=== PATIENT | male | born 1950 | race Caucasian/White ===

== ENCOUNTER → 2017-03-14 | Outpatient (CLI) | payer OTHER ==
[~2017-03-14] MED LIST: ASPI81CH43 PO; ASPI81TA27 PO; Atorvastatin Calcium PO; CAR3125T PO; CLOP75TA28 PO; DIG025T PO; ENA2.5T PO; WARF5TAB PO
== END | disposition home or self-care (01) ==
LOC: XYW 10:52
PROVIDERS: ATTEND Internal Medicine Cardiovascular Disease
DX: I34.0 Nonrheumatic mitral (valve) insufficiency (principal); I48.91 Unspecified atrial fibrillation
CPT/HCPCS: 93306

== ENCOUNTER → 2017-04-28 | Outpatient (CLI) | payer OTHER ==
[2017-04-28 17:07] LABS: Urine Bacteria NONE SEEN /hpf (None Seen); Urine Blood Negative /uL (Negative); Urine Mucus FEW (None Seen); Urine Specific Gravity 1.022 (1.001-1.035); Urine WBC 7 /hpf (0 - 3)
== END | disposition home or self-care (01) ==
LOC: LAB 16:21
PROVIDERS: ATTEND Internal Medicine Cardiovascular Disease
DX: I48.2 Chronic atrial fibrillation (principal)
CPT/HCPCS: 81001

== ENCOUNTER → 2017-05-26 | Outpatient (CLI) | payer OTHER ==
[2017-05-26 09:16] LABS: Basophils # (auto) 0.1 uL; Basophils % (auto) 0.6 % (0.0-2.0); Eosinophils # (auto) 0.4 uL; Eosinophils % (auto) 3.7 % (0.0-7.0); Hematocrit 42.9 % (41.0-53.0); Hemoglobin 14.5 g/dL (13.5-17.5); Lymphocytes # (auto) 2.1 uL; Lymphocytes % (auto) 22.3 % (10.0-50.0); Mean Corpuscular Hgb Conc. 33.9 g/dL (32.0-36.0); Mean Corpuscular Volume 94.3 fL (80.0-100.0); Monocytes # (auto) 0.8 uL; Neutrophils # (auto) 6.3 uL; Neutrophils % (auto) 65.4 % (37.0-80.0); Nucleated Red Blood Cells % 0.1 %; Platelet Count (auto) 250 10^3/uL (140-450); Red Blood Cells 4.55 10^6/uL (4.5-5.90); Red Cell Distribution Width 12.7 % (11.8-14.3); White Blood Cell 9.6 10^3/uL (4.4-10.8)
[2017-05-26 09:51] LABS: Albumin 3.9 g/dL (3.4-5.0); Calcium 8.8 mg/dL (8.5-10.1)
[2017-05-26 14:24] LABS: BUN/Creatinine Ratio 18.4; Bilirubin, Total 0.7 mg/dL (0.2-1.0); Total Protein 7.3 g/dL (6.4-8.2)
== END | disposition home or self-care (01) ==
LOC: LAB 08:26
PROVIDERS: ATTEND Physician Assistant
DX: I48.2 Chronic atrial fibrillation (principal); N18.2 Chronic kidney disease, stage 2 (mild); I25.2 Old myocardial infarction; R30.0 Dysuria; Z86.79 Personal history of other diseases of the circulatory system
CPT/HCPCS: 36415; 80053; 80061; 84153; 85025

== ENCOUNTER → 2017-11-16 | Outpatient (CLI) | payer OTHER | END | disposition home or self-care (01) | LOC: XYW 07:32 | PROVIDERS: ATTEND Internal Medicine Cardiovascular Disease | DX: I70.0 Atherosclerosis of aorta (principal); I48.2 Chronic atrial fibrillation; Z79.82 Long term (current) use of aspirin | CPT/HCPCS: 93306 ==

== ENCOUNTER → 2018-03-16 | Outpatient (CLI) | payer OTHER ==
[2018-03-16 10:59] LABS: Basophils # (auto) 0.1 uL; Basophils % (auto) 0.9 % (0.0-2.0); Eosinophils # (auto) 0.3 uL; Eosinophils % (auto) 3.4 % (0.0-7.0); Hemoglobin 14.7 g/dL (13.5-17.5); Lymphocytes % (auto) 21.2 % (10.0-50.0); Mean Corpuscular Hemoglobin 33.6 pg (28.0-32.0); Mean Corpuscular Hgb Conc. 34.2 g/dL (32.0-36.0); Monocytes # (auto) 0.8 uL; Monocytes % (auto) 8.5 % (0.0-12.0); Neutrophils # (auto) 6.3 uL; Platelet Count (auto) 238 10^3/uL (140-450); Red Blood Cells 4.38 10^6/uL (4.5-5.90); Red Cell Distribution Width 13.1 % (11.8-14.3); White Blood Cell 9.6 10^3/uL (4.4-10.8)
[2018-03-16 11:37] LABS: Albumin 3.8 g/dL (3.4-5.0); BUN/Creatinine Ratio 12.5; Calcium 8.7 mg/dL (8.5-10.1); Potassium 4.8 mmol/L (3.5-5.1)
[2018-03-16 11:42] LABS: Bilirubin, Total 0.7 mg/dL (0.2-1.0); Total Protein 6.9 g/dL (6.4-8.2)
== END | disposition home or self-care (01) ==
LOC: LAB 10:37
PROVIDERS: ATTEND Physician Assistant
DX: Z12.5 Encounter for screening for malignant neoplasm of prostate (principal); I25.5 Ischemic cardiomyopathy; I48.2 Chronic atrial fibrillation; N18.2 Chronic kidney disease, stage 2 (mild); Z79.01 Long term (current) use of anticoagulants
CPT/HCPCS: 36415; 80053; 80061; 82270; 84153; 85025

== ENCOUNTER → 2019-02-01 | Outpatient (CLI) | payer OTHER ==
[~2019-02-01] VITALS: Ht 188 cm; Wt 107.5 kg
[~2019-02-01] MED LIST changes: +ADENOSINE 90 MG in GIVE UN-DILUTED 0 ML IV STA; +ASPI-404 PO; -ASPI81TA27 PO; -ENA2.5T PO; +ENAL2.5T2 PO
== END | disposition home or self-care (01) ==
LOC: XY 07:39
PROVIDERS: ATTEND Internal Medicine
DX: I25.10 Atherosclerotic heart disease of native coronary artery without angina pectoris (principal)
CPT/HCPCS: 78452; 93017; A9500; J0153

== ENCOUNTER → 2019-02-06 | Outpatient (CLI) | payer OTHER ==
[~2019-02-06] MED LIST changes: -ADENOSINE 90 MG in GIVE UN-DILUTED 0 ML IV STA
== END | disposition home or self-care (01) ==
LOC: XYW 09:27
PROVIDERS: ATTEND Internal Medicine
DX: I08.1 Rheumatic disorders of both mitral and tricuspid valves (principal); I48.91 Unspecified atrial fibrillation
CPT/HCPCS: 93306

== ENCOUNTER → 2019-02-08 | Outpatient (CLI) | payer OTHER ==
[2019-02-08 12:17] LABS: Cholesterol 126 mg/dL (< 200); HDL Cholesterol 53 mg/dL (40-59); LDL Cholesterol 65 mg/dL (< 100); Triglycerides 89 mg/dL (< 150)
== END | disposition home or self-care (01) ==
LOC: LAB 11:40
PROVIDERS: ATTEND Internal Medicine
DX: I42.0 Dilated cardiomyopathy (principal); N18.2 Chronic kidney disease, stage 2 (mild)
CPT/HCPCS: 36415; 80061

== ENCOUNTER → 2019-09-17 | Outpatient (CLI) | payer OTHER ==
[~2019-09-17] MED LIST changes: +APIX5TAB PO; -ASPI-404 PO; +ASPI-543 PO; +CARV6.2551 PO; +ENAL2.5T11 PO; -ENAL2.5T2 PO; +LISI-648 PO; +SPIR25TA8 PO
[2019-09-17 11:13] LABS: Basophils # (auto) 0.1 10 ^3/uL (0-0.2); Basophils % (auto) 0.7 % (0.0-2.0); Eosinophils # (auto) 0.2 10 ^3/uL (0-0.8); Eosinophils % (auto) 2.5 % (0.0-7.0); Hematocrit 46.8 % (41.0-53.0); Hemoglobin 15.8 g/dL (13.5-17.5); Lymphocytes # (auto) 1.8 10 ^3/uL (0.4-5.4); Lymphocytes % (auto) 18.9 % (10.0-50.0); Mean Corpuscular Hemoglobin 33.1 pg (28.0-32.0); Mean Corpuscular Hgb Conc. 33.7 g/dL (32.0-36.0); Mean Corpuscular Volume 98.2 fL (80.0-100.0); Monocytes # (auto) 0.9 10 ^3/uL (0-1.3); Neutrophils # (auto) 6.7 10 ^3/uL (1.6-8.6); Neutrophils % (auto) 68.9 % (37.0-80.0); Nucleated Red Blood Cells % 0.2 %; Platelet Count (auto) 221 10^3/uL (140-450); Red Blood Cells 4.77 10^6/uL (4.5-5.90); Red Cell Distribution Width 12.7 % (11.8-14.3); White Blood Cell 9.7 10^3/uL (4.4-10.8)
[2019-09-17 12:26] LABS: Potassium 4.5 mmol/L (3.5-5.1)
[2019-09-17 12:38] LABS: Albumin 3.8 g/dL (3.4-5.0); BUN/Creatinine Ratio 14.1; Bilirubin, Total 0.7 mg/dL (0.2-1.0); Calcium 8.5 mg/dL (8.5-10.1); Total Protein 6.9 g/dL (6.4-8.2)
== END | disposition home or self-care (01) ==
LOC: LAB 11:01
PROVIDERS: ATTEND Physician Assistant
DX: Z00.00 Encounter for general adult medical examination without abnormal findings (principal); I12.9 Hypertensive chronic kidney disease with stage 1 through stage 4 chronic kidney disease, or unspecified chronic kidney disease; N18.2 Chronic kidney disease, stage 2 (mild); I48.20 Chronic atrial fibrillation, unspecified; R35.1 Nocturia
CPT/HCPCS: 36415; 80053; 80061; 84153; 84154; 85025

== ENCOUNTER → 2019-09-25 | Outpatient (CLI) | payer OTHER ==
[~2019-09-25] MED LIST changes: -APIX5TAB PO; +ASPI-404 PO; -ASPI-543 PO; -CARV6.2551 PO; -ENAL2.5T11 PO; +ENAL2.5T2 PO; -LISI-648 PO; -SPIR25TA8 PO
== END | disposition home or self-care (01) ==
LOC: LAB 13:01
PROVIDERS: ATTEND Physician Assistant
DX: Z00.00 Encounter for general adult medical examination without abnormal findings (principal); I12.9 Hypertensive chronic kidney disease with stage 1 through stage 4 chronic kidney disease, or unspecified chronic kidney disease; N18.2 Chronic kidney disease, stage 2 (mild); R35.1 Nocturia; I48.20 Chronic atrial fibrillation, unspecified
CPT/HCPCS: 82274

== ENCOUNTER → 2019-10-02 | Outpatient (CLI) | payer OTHER ==
[~2019-10-02] MED LIST changes: +APIX5TAB PO; -ASPI-404 PO; +ASPI-543 PO; +CARV6.2551 PO; +ENAL2.5T11 PO; -ENAL2.5T2 PO; +LISI-648 PO; +SPIR25TA8 PO
== END | disposition home or self-care (01) ==
LOC: XYW 09:42
PROVIDERS: ATTEND Internal Medicine
DX: I08.0 Rheumatic disorders of both mitral and aortic valves (principal); I48.91 Unspecified atrial fibrillation
CPT/HCPCS: 93306

== ENCOUNTER → 2020-01-02 | Outpatient (CLI) | payer OTHER ==
[~2020-01-02] MED LIST changes: -APIX5TAB PO; -CARV6.2551 PO; -LISI-648 PO; -SPIR25TA8 PO
== END | disposition home or self-care (01) ==
LOC: LAB 17:28
PROVIDERS: ATTEND Urology
DX: N39.0 Urinary tract infection, site not specified (principal)
CPT/HCPCS: 87086

== ENCOUNTER → 2020-01-24 | Day surgery (SDC) | payer OTHER ==
[2020-01-20 10:59] LABS: Basophils # (auto) 0.1 10 ^3/uL (0-0.2); Basophils % (auto) 0.8 % (0.0-2.0); Eosinophils # (auto) 0.2 10 ^3/uL (0-0.8); Eosinophils % (auto) 2.1 % (0.0-7.0); Hematocrit 48.1 % (41.0-53.0); Hemoglobin 16.2 g/dL (13.5-17.5); Lymphocytes # (auto) 1.6 10 ^3/uL (0.4-5.4); Lymphocytes % (auto) 18.1 % (10.0-50.0); Mean Corpuscular Hemoglobin 33.1 pg (28.0-32.0); Mean Corpuscular Hgb Conc. 33.7 g/dL (32.0-36.0); Mean Corpuscular Volume 98.4 fL (80.0-100.0); Monocytes # (auto) 0.9 10 ^3/uL (0-1.3); Monocytes % (auto) 9.8 % (0.0-12.0); Neutrophils # (auto) 6.3 10 ^3/uL (1.6-8.6); Neutrophils % (auto) 69.2 % (37.0-80.0); Nucleated Red Blood Cells % 0.2 %; Platelet Count (auto) 240 10^3/uL (140-450); Red Cell Distribution Width 12.9 % (11.8-14.3)
[2020-01-20 11:13] LABS: INR 1.03 (0.9-1.15); Partial Thromboplastin Time 26.8 sec (23.0-31.2)
[~2020-01-24] VITALS: Ht 188 cm; Wt 108.9 kg
[~2020-01-24] MED LIST changes: +APIX5TAB PO; -ASPI-543 PO; -ASPI81CH43 PO; -CAR3125T PO; +CARV6.2551 PO; -CLOP75TA28 PO; -DIG025T PO; -ENAL2.5T11 PO; +LISI-648 PO; +SODIUM CHLORIDE LOCK 10 ML ONE; +SPIR25TA8 PO; -WARF5TAB PO
[2020-01-24] MEDS: MIDAZOLAM HCL 5 MG/ML-1ML VIAL ONE ×4 (13:10→13:19)
[2020-01-24] MEDS: fentaNYL CITRATE 100 MCG/2 ML VL ONE ×3 (13:10→13:17)
[2020-01-24] MEDS: diphenhdrAMINE HCL 50 MG/1 ML VL ONE ×2 (13:18→13:21)
[2020-01-24 14:15] VITALS: BP 119/77
== END | disposition home or self-care (01) ==
LOC: GI 11:37
PROVIDERS: ATTEND Internal Medicine Gastroenterology
DX: R19.5 Other fecal abnormalities (principal); D12.3 Benign neoplasm of transverse colon; K63.5 Polyp of colon; K57.30 Diverticulosis of large intestine without perforation or abscess without bleeding; K64.8 Other hemorrhoids; I48.91 Unspecified atrial fibrillation; K44.9 Diaphragmatic hernia without obstruction or gangrene; Z90.49 Acquired absence of other specified parts of digestive tract; Z98.890 Other specified postprocedural states; Z20.828 Contact with and (suspected) exposure to other viral communicable diseases; Z87.440 Personal history of urinary (tract) infections; Z87.898 Personal history of other specified conditions; Z79.899 Other long term (current) drug therapy
CPT/HCPCS: 36415; 45380; 45385; 85025; 85610; 85730; 88305; J1200; J2250; J3010; J7030; U0003; 99152; 99153

== ENCOUNTER → 2020-06-09 | Outpatient (CLI) | payer OTHER ==
[~2020-06-09] MED LIST changes: -SODIUM CHLORIDE LOCK 10 ML ONE
[2020-06-09 09:58] LABS: Basophils # (auto) 0 10 ^3/uL (0-0.2); Basophils % (auto) 0.5 % (0.0-2.0); Eosinophils # (auto) 0.2 10 ^3/uL (0-0.8); Eosinophils % (auto) 2.7 % (0.0-7.0); Hematocrit 48.3 % (41.0-53.0); Hemoglobin 16.5 g/dL (13.5-17.5); Lymphocytes # (auto) 1.5 10 ^3/uL (0.4-5.4); Mean Corpuscular Hemoglobin 33.3 pg (28.0-32.0); Mean Corpuscular Hgb Conc. 34.2 g/dL (32.0-36.0); Mean Corpuscular Volume 97.3 fL (80.0-100.0); Monocytes # (auto) 0.6 10 ^3/uL (0-1.3); Monocytes % (auto) 8.9 % (0.0-12.0); Neutrophils # (auto) 4.7 10 ^3/uL (1.6-8.6); Neutrophils % (auto) 66.9 % (37.0-80.0); Nucleated Red Blood Cells % 0.1 %; Platelet Count (auto) 204 10^3/uL (140-450); Red Blood Cells 4.96 10^6/uL (4.5-5.90); Red Cell Distribution Width 13.3 % (11.8-14.3)
[2020-06-09 10:16] LABS: Albumin 3.4 g/dL (3.4-5.0); BUN/Creatinine Ratio 10.2; Calcium 8.8 mg/dL (8.5-10.1); Potassium 4.3 mmol/L (3.5-5.1)
[2020-06-09 10:22] LABS: Bilirubin, Total 0.6 mg/dL (0.2-1.0)
== END | disposition home or self-care (01) ==
LOC: LAB 09:22
PROVIDERS: ATTEND Urology
DX: I12.9 Hypertensive chronic kidney disease with stage 1 through stage 4 chronic kidney disease, or unspecified chronic kidney disease (principal); N18.2 Chronic kidney disease, stage 2 (mild); I48.20 Chronic atrial fibrillation, unspecified; R97.20 Elevated prostate specific antigen [PSA]; R35.1 Nocturia; Z79.01 Long term (current) use of anticoagulants
CPT/HCPCS: 36415; 80053; 80061; 84153; 84154; 85025

== ENCOUNTER → 2021-06-22 | Outpatient (CLI) | payer OTHER ==
[~2021-06-22] MED LIST changes: -LISI-648 PO; +LISI-716 PO
[2021-06-22 10:22] LABS: Eosinophils # (auto) 0.2 10 ^3/uL (0-0.8); Hemoglobin 17.7 g/dL (13.5-17.5); Monocytes # (auto) 0.6 10 ^3/uL (0-1.3); Nucleated Red Blood Cells % 0.3 %; White Blood Cell 6.5 10^3/uL (4.4-10.8)
[2021-06-22 10:26] LABS: Basophils # (auto) 0 10 ^3/uL (0-0.2); Basophils % (auto) 0.5 % (0.0-2.0); Hematocrit 51.6 % (41.0-53.0); Lymphocytes # (auto) 1.4 10 ^3/uL (0.4-5.4); Lymphocytes % (auto) 21.2 % (10.0-50.0); Mean Corpuscular Hemoglobin 32.9 pg (28.0-32.0); Mean Corpuscular Hgb Conc. 34.4 g/dL (32.0-36.0); Mean Corpuscular Volume 95.7 fL (80.0-100.0); Monocytes % (auto) 8.8 % (0.0-12.0); Neutrophils # (auto) 4.3 10 ^3/uL (1.6-8.6); Neutrophils % (auto) 66.5 % (37.0-80.0); Red Cell Distribution Width 13.4 % (11.8-14.3)
[2021-06-22 11:20] LABS: Potassium 4.9 mmol/L (3.5-5.1)
[2021-06-22 11:30] LABS: Albumin 3.8 g/dL (3.4-5.0); BUN/Creatinine Ratio 12.8; Bilirubin, Total 0.9 mg/dL (0.2-1.0); Calcium 9.2 mg/dL (8.5-10.1)
== END | disposition home or self-care (01) ==
LOC: LAB 09:55
PROVIDERS: ATTEND Nurse Practitioner Family
DX: I12.9 Hypertensive chronic kidney disease with stage 1 through stage 4 chronic kidney disease, or unspecified chronic kidney disease (principal); N18.31 Chronic kidney disease, stage 3a; I25.5 Ischemic cardiomyopathy; I48.20 Chronic atrial fibrillation, unspecified; R97.20 Elevated prostate specific antigen [PSA]
CPT/HCPCS: 36415; 80053; 80061; 84153; 84154; 85025

== ENCOUNTER → 2021-07-13 | Outpatient (CLI) | payer OTHER | END | disposition home or self-care (01) | LOC: XYW 14:48 | PROVIDERS: ATTEND Internal Medicine | DX: I08.3 Combined rheumatic disorders of mitral, aortic and tricuspid valves (principal); I48.20 Chronic atrial fibrillation, unspecified; I10 Essential (primary) hypertension | CPT/HCPCS: 93306 ==

== ENCOUNTER → 2022-07-01 | Outpatient (CLI) | payer OTHER ==
[2022-07-01 10:43] LABS: Basophils # (auto) 0.1 10 ^3/uL (0-0.2); Eosinophils # (auto) 0.2 10 ^3/uL (0-0.8); Eosinophils % (auto) 2.3 % (0.0-7.0); Hematocrit 49.4 % (41.0-53.0); Hemoglobin 17.2 g/dL (13.5-17.5); Lymphocytes # (auto) 1.6 10 ^3/uL (0.4-5.4); Lymphocytes % (auto) 22.5 % (10.0-50.0); Mean Corpuscular Hemoglobin 32.9 pg (28.0-32.0); Mean Corpuscular Hgb Conc. 34.8 g/dL (32.0-36.0); Mean Corpuscular Volume 94.7 fL (80.0-100.0); Monocytes # (auto) 0.6 10 ^3/uL (0-1.3); Monocytes % (auto) 8.2 % (0.0-12.0); Neutrophils # (auto) 4.8 10 ^3/uL (1.6-8.6); Nucleated Red Blood Cells % 0.8 %; Red Blood Cells 5.22 10^6/uL (4.5-5.90); Red Cell Distribution Width 13.6 % (11.8-14.3); White Blood Cell 7.3 10^3/uL (4.4-10.8)
[2022-07-01 12:09] LABS: Albumin 3.6 g/dL (3.4-5.0); BUN/Creatinine Ratio 13.9 (10.0-20.0); Calcium 8.7 mg/dL (8.5-10.1); Potassium 4.6 mmol/L (3.5-5.1)
[2022-07-01 12:14] LABS: Bilirubin, Total 0.8 mg/dL (0.2-1.0); Total Protein 6.9 g/dL (6.4-8.2)
== END | disposition home or self-care (01) ==
LOC: LAB 10:27
PROVIDERS: ATTEND Nurse Practitioner Family
DX: Z00.00 Encounter for general adult medical examination without abnormal findings (principal); I25.5 Ischemic cardiomyopathy; I10 Essential (primary) hypertension; R97.20 Elevated prostate specific antigen [PSA]
CPT/HCPCS: 36415; 80053; 80061; 84153; 84154; 85025

== ENCOUNTER → 2022-07-29 | Outpatient (CLI) | payer OTHER | END | disposition home or self-care (01) | LOC: LAB 13:55 | PROVIDERS: ATTEND Family Medicine | DX: L90.5 Scar conditions and fibrosis of skin (principal); D22.9 Melanocytic nevi, unspecified | CPT/HCPCS: 88302 ==

== ENCOUNTER 2023-04-04 07:37 | Emergency (ER) | payer OTHER ==
[~2023-04-04] VITALS: Ht 188 cm; Wt 97.9 kg
[~2023-04-04 07:37] MED LIST changes: -LISI-716 PO; +LISI10TA34 PO
[2023-04-04 08:19] LABS: Basophils # (auto) 0 10 ^3/uL (0-0.2); Basophils % (auto) 0.4 % (0.0-2.0); Eosinophils # (auto) 0.1 10 ^3/uL (0-0.8); Eosinophils % (auto) 1.3 % (0.0-7.0); Hematocrit 46.9 % (41.0-53.0); Hemoglobin 16.2 g/dL (13.5-17.5); Lymphocytes # (auto) 1.2 10 ^3/uL (0.4-5.4); Lymphocytes % (auto) 13.3 % (10.0-50.0); Mean Corpuscular Hemoglobin 33.1 pg (28.0-32.0); Mean Corpuscular Hgb Conc. 34.5 g/dL (32.0-36.0); Mean Corpuscular Volume 95.8 fL (80.0-100.0); Monocytes # (auto) 1.1 10 ^3/uL (0-1.3); Monocytes % (auto) 12.2 % (0.0-12.0); Neutrophils # (auto) 6.8 10 ^3/uL (1.6-8.6); Neutrophils % (auto) 72.8 % (37.0-80.0); Nucleated Red Blood Cells % 0.2 %; White Blood Cell 9.4 10^3/uL (4.4-10.8)
[2023-04-04 08:32] LABS: Alanine Aminotransferase 47 U/L (7-40); Albumin 3.7 g/dL (3.2-4.8); Alkaline Phosphatase 69 U/L (46-116); Anion Gap 7 (5-15); Aspartate Aminotransferase 37 U/L (13-40); BUN/Creatinine Ratio 12.4 (10.0-20.0); Bilirubin, Total 1.1 mg/dL (0.2-1.0); Blood Urea Nitrogen 17 mg/dL (9-23); Calcium 9.1 mg/dL (8.5-10.1); Carbon Dioxide 25 mmol/L (20-30); Chloride 105 mmol/L (98-107); Glucose 105 mg/dL (74-106); Potassium 3.7 mmol/L (3.5-5.1); Sodium 137 mmol/L (136-145); Total Protein 6.8 g/dL (5.7-8.2)
[2023-04-04 10:24] LABS: Urine Bacteria NONE SEEN /hpf (None Seen); Urine Blood 3+ /uL (Negative); Urine Clarity HAZY (Clear); Urine Color Brown (Yellow); Urine Hyaline Cast MANY /lpf (0 - 2); Urine Mucus FEW (None Seen); Urine Protein, UAD 2+ (Negative); Urine Specific Gravity 1.018 (1.001-1.035); Urine WBC 73 /hpf (0 - 3)
[2023-04-04 13:14] VITALS: BP 118/88; PULSE 71; RESP 18; TEMP 98.1; O2SAT 96
[2023-04-04] MEDS ORDERED: BACDST PO ×2 (13:21)
[2023-04-04] MEDS ORDERED: cefTRIAXone SOD 1,000 MG VL IM ONE (13:30)
== END 2023-04-04 13:34 | disposition home or self-care (01) ==
LOC: ER 07:37
DX: N39.0 Urinary tract infection, site not specified (principal); F17.210 Nicotine dependence, cigarettes, uncomplicated
CPT/HCPCS: 36415; 80053; 81001; 85025; 96372; J0696

== ENCOUNTER 2023-04-05 18:39 | Inpatient (IN) | payer OTHER ==
[~2023-04-05] VITALS: Ht 185.4 cm; Wt 96.0 kg
[~2023-04-05 18:39] MED LIST changes: +BACDST PO
[2023-04-05 20:34] LABS: Basophils # (auto) 0 10 ^3/uL (0-0.2); Basophils % (auto) 0.3 % (0.0-2.0); Eosinophils # (auto) 0 10 ^3/uL (0-0.8); Eosinophils % (auto) 0.3 % (0.0-7.0); Hematocrit 48.1 % (41.0-53.0); Hemoglobin 16.5 g/dL (13.5-17.5); Lymphocytes # (auto) 1.2 10 ^3/uL (0.4-5.4); Lymphocytes % (auto) 9.3 % (10.0-50.0); Mean Corpuscular Hgb Conc. 34.3 g/dL (32.0-36.0); Mean Corpuscular Volume 96.4 fL (80.0-100.0); Monocytes # (auto) 1.3 10 ^3/uL (0-1.3); Monocytes % (auto) 10.3 % (0.0-12.0); Neutrophils # (auto) 10.3 10 ^3/uL (1.6-8.6); Neutrophils % (auto) 79.8 % (37.0-80.0); Nucleated Red Blood Cells % 0.2 %; Red Blood Cells 4.99 10^6/uL (4.5-5.90); White Blood Cell 12.9 10^3/uL (4.4-10.8)
[2023-04-05 20:58] LABS: Alanine Aminotransferase 61 U/L (7-40); Albumin 3.8 g/dL (3.2-4.8); Alkaline Phosphatase 76 U/L (46-116); Anion Gap 13 (5-15); Aspartate Aminotransferase 61 U/L (13-40); BUN/Creatinine Ratio 15.5 (10.0-20.0); Blood Urea Nitrogen 23 mg/dL (9-23); Calcium 8.9 mg/dL (8.7-10.4); Carbon Dioxide 19 mmol/L (20-30); Chloride 102 mmol/L (98-107); Glucose 106 mg/dL (74-106); Potassium 4.2 mmol/L (3.5-5.1); Sodium 134 mmol/L (136-145)
[2023-04-05 20:59] LABS: Bilirubin, Total 1.3 mg/dL (0.2-1.0); Total Protein 6.7 g/dL (5.7-8.2)
[2023-04-05] MEDS ORDERED: cefTRIAXone 1GM/50ML D5W 50 ML IV ONE (21:30)
[2023-04-05 22:09] VITALS: PULSE 67; RESP 20; O2SAT 96
[2023-04-05 23:04] LABS: Urine Bacteria NONE SEEN /hpf (None Seen); Urine Blood 3+ /uL (Negative); Urine Clarity HAZY (Clear); Urine Color Yellow (Yellow); Urine Hyaline Cast FEW /lpf (0 - 2); Urine Protein, UAD 1+ (Negative); Urine Specific Gravity 1.012 (1.001-1.035); Urine Urobilinogen Normal (Negative); Urine WBC 74 /hpf (0 - 3)
[2023-04-05] MEDS ORDERED: HYDROcodone-ACET 5/325MG TAB PO PRN (23:15)
[2023-04-05] MEDS ORDERED: ACETAMINOPHEN 325 MG TAB PO PRN (23:15)
[2023-04-05] MEDS ORDERED: ONDANSETRON HCL 4 MG/2 ML VIAL IV PRN (23:15)
[2023-04-06 04:10] VITALS: O2SAT 98
[2023-04-06 05:00] VITALS: BP 111/69; PULSE 66; RESP 20; TEMP 97.7; O2SAT 96
[2023-04-06 06:51] LABS: Basophils # (auto) 0 10 ^3/uL (0-0.2); Eosinophils # (auto) 0 10 ^3/uL (0-0.8); Eosinophils % (auto) 0.5 % (0.0-7.0); Lymphocytes % (auto) 13.2 % (10.0-50.0)
[2023-04-06 06:55] LABS: Basophils % (auto) 0.5 % (0.0-2.0); Hematocrit 42.4 % (41.0-53.0); Hemoglobin 14.9 g/dL (13.5-17.5); Mean Corpuscular Hemoglobin 34.9 pg (28.0-32.0); Mean Corpuscular Hgb Conc. 35.3 g/dL (32.0-36.0); Mean Corpuscular Volume 99.1 fL (80.0-100.0); Monocytes % (auto) 13.1 % (0.0-12.0); Neutrophils # (auto) 5.8 10 ^3/uL (1.6-8.6); Neutrophils % (auto) 72.7 % (37.0-80.0); Red Blood Cells 4.28 10^6/uL (4.5-5.90); Red Cell Distribution Width 12.9 % (11.8-14.3)
[2023-04-06 07:00] LABS: Alanine Aminotransferase 49 U/L (7-40); Alkaline Phosphatase 60 U/L (46-116); Anion Gap 10 (5-15); BUN/Creatinine Ratio 11.3 (10.0-20.0); Blood Urea Nitrogen 17 mg/dL (9-23); Carbon Dioxide 22 mmol/L (20-30); Chloride 104 mmol/L (98-107); Glucose 103 mg/dL (74-106); Potassium 5.1 mmol/L (3.5-5.1); Sodium 136 mmol/L (136-145)
[2023-04-06 07:01] LABS: Albumin 3.4 g/dL (3.2-4.8); Aspartate Aminotransferase 46 U/L (13-40)
[2023-04-06 07:02] LABS: Bilirubin, Total 0.8 mg/dL (0.2-1.0); Total Protein 6.2 g/dL (5.7-8.2)
[2023-04-06 09:00] VITALS: BP 107/64; PULSE 76; RESP 16; TEMP 97.7; O2SAT 100
[2023-04-06] MEDS ORDERED: cefTRIAXone 1GM/50ML D5W 50 ML IV SCH (09:00)
[2023-04-06] MEDS: CARVEDILOL 3.125 MG TAB PO SCH ×2 (09:33→22:00)
[2023-04-06] MEDS ORDERED: LISINOPRIL 10 MG TAB PO SCH (10:00)
[2023-04-06] MEDS ORDERED: TAMSULOSIN HYDROCHLORIDE 0.4 MG CAP PO ONE (12:15)
[2023-04-06 13:00] VITALS: BP 117/79; PULSE 82; RESP 15; TEMP 97.8; O2SAT 95
[2023-04-06] MEDS ORDERED: ERGOCALCIFEROL 50,000 UNIT(1.25MG) CAP PO SCH (14:00)
[2023-04-06 16:28] VITALS: BP 102/89; PULSE 61; RESP 17; TEMP 98.2; O2SAT 93
[2023-04-06] MEDS ORDERED: TAMSULOSIN HYDROCHLORIDE 0.4 MG CAP PO SCH (18:00)
[2023-04-06] MEDS: APIXABAN 5 MG TAB PO SCH (21:52)
[2023-04-06] MEDS: cefTRIAXone 1GM/50ML D5W 50 ML IV SCH ×2 (21:59→22:59)
[2023-04-06 22:00] VITALS: BP 97/58; PULSE 68; RESP 18; TEMP 98.4; O2SAT 95
[2023-04-06] MEDS ORDERED: ATORVASTATIN 20 MG TAB PO SCH (22:00)
[2023-04-07 05:00] VITALS: BP 119/78; PULSE 64; RESP 19; TEMP 97.5; O2SAT 100
[2023-04-07 06:48] LABS: Basophils # (auto) 0 10 ^3/uL (0-0.2); Basophils % (auto) 0.6 % (0.0-2.0); Hemoglobin 14.2 g/dL (13.5-17.5); Monocytes # (auto) 0.9 10 ^3/uL (0-1.3); White Blood Cell 7.1 10^3/uL (4.4-10.8)
[2023-04-07 06:50] LABS: Eosinophils # (auto) 0 10 ^3/uL (0-0.8); Eosinophils % (auto) 0.6 % (0.0-7.0); Hematocrit 40.5 % (41.0-53.0); Lymphocytes % (auto) 14.6 % (10.0-50.0); Mean Corpuscular Hemoglobin 34.4 pg (28.0-32.0); Mean Corpuscular Hgb Conc. 34.9 g/dL (32.0-36.0); Mean Corpuscular Volume 98.5 fL (80.0-100.0); Monocytes % (auto) 12.6 % (0.0-12.0); Neutrophils # (auto) 5.1 10 ^3/uL (1.6-8.6); Neutrophils % (auto) 71.6 % (37.0-80.0); Nucleated Red Blood Cells % 0.2 %; Red Blood Cells 4.12 10^6/uL (4.5-5.90); Red Cell Distribution Width 12.7 % (11.8-14.3)
[2023-04-07] MEDS ORDERED: EMPAGLIFLOZIN 10 MG TAB PO SCH (07:00)
[2023-04-07 07:17] LABS: Alanine Aminotransferase 52 U/L (7-40); Alkaline Phosphatase 60 U/L (46-116); Anion Gap 10 (5-15); Aspartate Aminotransferase 41 U/L (13-40); BUN/Creatinine Ratio 16.5 (10.0-20.0); Bilirubin, Total 0.8 mg/dL (0.2-1.0); Blood Urea Nitrogen 23 mg/dL (9-23); Calcium 8.2 mg/dL (8.5-10.1); Carbon Dioxide 20 mmol/L (20-30); Chloride 108 mmol/L (98-107); Glucose 104 mg/dL (74-106); Potassium 4.4 mmol/L (3.5-5.1); Sodium 138 mmol/L (136-145); Total Protein 5.4 g/dL (5.7-8.2)
[2023-04-07] MEDS ORDERED: ACET-1882 PO ×2 (07:28)
[2023-04-07] MEDS ORDERED: CEPH500C PO ×2 (07:28)
[2023-04-07] MEDS ORDERED: ERGO1CAP23 PO ×2 (07:28)
[2023-04-07] MEDS ORDERED: EMPA1TAB PO ×2 (07:28)
[2023-04-07 08:00] VITALS: PULSE 57; RESP 18; O2SAT 97
[2023-04-07 08:06] LABS: Free Thyroxine Index 2.6 (1.2-4.9); Thyroxine (T4) 7.2 ug/dL (4.5-12.0)
[2023-04-07 09:00] VITALS: BP 92/60; PULSE 57; RESP 18; TEMP 97.8; O2SAT 97
[2023-04-07 09:47] VITALS: BP 92/60; PULSE 57; RESP 18; TEMP 97.8; O2SAT 97
[2023-04-07] MEDS: CARVEDILOL 3.125 MG TAB PO SCH (10:00)
[2023-04-07] MEDS: APIXABAN 5 MG TAB PO SCH (10:29)
== END 2023-04-07 11:45 | disposition home health service (06) | DRG 690 ==
LOC: EDBD 18:39 → ER 18:39 → EDUNIT# 18:39 → OVERFLOW 23:12 → CENTRAL 04-06 02:33
PROVIDERS: ADMIT Internal Medicine; ATTEND Internal Medicine
DX: N13.6 Pyonephrosis (principal); I50.22 Chronic systolic (congestive) heart failure; I48.19 Other persistent atrial fibrillation; D68.59 Other primary thrombophilia; R33.9 Retention of urine, unspecified; N17.0 Acute kidney failure with tubular necrosis; N18.9 Chronic kidney disease, unspecified; N20.0 Calculus of kidney; E78.5 Hyperlipidemia, unspecified; E55.9 Vitamin D deficiency, unspecified; R74.01 Elevation of levels of liver transaminase levels; F17.210 Nicotine dependence, cigarettes, uncomplicated; I13.10 Hypertensive heart and chronic kidney disease without heart failure, with stage 1 through stage 4 chronic kidney disease, or unspecified chronic kidney disease; E66.9 Obesity, unspecified; I25.10 Atherosclerotic heart disease of native coronary artery without angina pectoris; I25.5 Ischemic cardiomyopathy; Z79.01 Long term (current) use of anticoagulants; Z95.5 Presence of coronary angioplasty implant and graft; Z87.442 Personal history of urinary calculi; Z79.899 Other long term (current) drug therapy; Z68.27 Body mass index [BMI] 27.0-27.9, adult
CPT/HCPCS: 36415; 74176; 76705; 80053; 81001; 82248; 82306; 82607; 83880; 84443; 84484; 85025; 87086; 93306; 96372; 97163; G0378; J0696

== ENCOUNTER 2023-04-26 17:19 | Inpatient (IN) | payer OTHER ==
[~2023-04-26] VITALS: Ht 188 cm; Wt 95.0 kg
[~2023-04-26 17:19] MED LIST changes: +ACET-1882 PO; -BACDST PO; +CEPH500C PO; +EMPA1TAB PO; +ERGO1CAP23 PO
[2023-04-26 18:24] LABS: Basophils # (auto) 0.2 10 ^3/uL (0-0.2); Basophils % (auto) 1.2 % (0.0-2.0); Eosinophils # (auto) 0 10 ^3/uL (0-0.8); Eosinophils % (auto) 0.2 % (0.0-7.0); Hematocrit 43.3 % (41.0-53.0); Hemoglobin 14.5 g/dL (13.5-17.5); Lymphocytes # (auto) 1.2 10 ^3/uL (0.4-5.4); Lymphocytes % (auto) 7.2 % (10.0-50.0); Mean Corpuscular Hemoglobin 32.4 pg (28.0-32.0); Mean Corpuscular Hgb Conc. 33.5 g/dL (32.0-36.0); Mean Corpuscular Volume 96.7 fL (80.0-100.0); Monocytes # (auto) 1.1 10 ^3/uL (0-1.3); Monocytes % (auto) 6.6 % (0.0-12.0); Neutrophils # (auto) 13.7 10 ^3/uL (1.6-8.6); Neutrophils % (auto) 84.8 % (37.0-80.0); Red Blood Cells 4.48 10^6/uL (4.5-5.90); Red Cell Distribution Width 13.7 % (11.8-14.3); White Blood Cell 16.2 10^3/uL (4.4-10.8)
[2023-04-26 18:32] LABS: Alanine Aminotransferase 28 U/L (7-40); Albumin 4.1 g/dL (3.2-4.8); Alkaline Phosphatase 87 U/L (46-116); Anion Gap 10 (5-15); Aspartate Aminotransferase 22 U/L (13-40); BUN/Creatinine Ratio 11.7 (10.0-20.0); Bilirubin, Total 0.7 mg/dL (0.2-1.0); Blood Urea Nitrogen 21 mg/dL (9-23); Calcium 9.4 mg/dL (8.5-10.1); Carbon Dioxide 22 mmol/L (20-30); Chloride 103 mmol/L (98-107); Glucose 125 mg/dL (74-106); Potassium 4.3 mmol/L (3.5-5.1); Sodium 135 mmol/L (136-145); Total Protein 6.8 g/dL (5.7-8.2)
[2023-04-26] MEDS ORDERED: SODIUM CHLORIDE 0.9% 1,000 ML IV ONE (18:45)
[2023-04-26 19:18] LABS: Urine Bacteria NONE SEEN /hpf (None Seen); Urine Blood 3+ /uL (Negative); Urine Clarity HAZY (Clear); Urine Color Red (Yellow); Urine Protein, UAD 2+ (Negative); Urine Specific Gravity 1.015 (1.001-1.035); Urine Urobilinogen Normal (Negative); Urine WBC 80 /hpf (0 - 3)
[2023-04-26 19:58] LABS: Lactic Acid w/Reflex 2.3 mmol/L (0.4-2.0)
[2023-04-26 20:02] LABS: Basophils # (auto) 0.1 10 ^3/uL (0-0.2); Basophils % (auto) 0.6 % (0.0-2.0); Eosinophils # (auto) 0 10 ^3/uL (0-0.8); Eosinophils % (auto) 0.1 % (0.0-7.0); Hematocrit 40.6 % (41.0-53.0); Hemoglobin 13.3 g/dL (13.5-17.5); Lymphocytes # (auto) 0.9 10 ^3/uL (0.4-5.4); Lymphocytes % (auto) 5.8 % (10.0-50.0); Mean Corpuscular Hemoglobin 31.7 pg (28.0-32.0); Mean Corpuscular Hgb Conc. 32.9 g/dL (32.0-36.0); Mean Corpuscular Volume 96.5 fL (80.0-100.0); Monocytes % (auto) 6.5 % (0.0-12.0); Neutrophils # (auto) 13.8 10 ^3/uL (1.6-8.6); Red Blood Cells 4.21 10^6/uL (4.5-5.90); Red Cell Distribution Width 13.3 % (11.8-14.3); White Blood Cell 15.9 10^3/uL (4.4-10.8)
[2023-04-26] MEDS ORDERED: cefTRIAXone 1GM/50ML D5W 50 ML IV ONE (20:15)
[2023-04-26] MEDS ORDERED: HYDROcodone-ACET 5/325MG TAB PO PRN (21:15)
[2023-04-26] MEDS ORDERED: TEMAZEPAM 15 MG CAP PO PRN (21:15)
[2023-04-26] MEDS ORDERED: ONDANSETRON HCL 4 MG/2 ML VIAL IV PRN (21:15)
[2023-04-26] MEDS ORDERED: ACETAMINOPHEN 325 MG TAB PO PRN (21:15)
[2023-04-26] MEDS: ATORVASTATIN 20 MG TAB PO SCH (23:53)
[2023-04-26] MEDS: CARVEDILOL 3.125 MG TAB PO SCH (23:58)
[2023-04-27] VITALS (8 sets, daily range): BP systolic 96–134; BP diastolic 54–68; PULSE 59–97; RESP 14–20; TEMP 98–98.9; O2SAT 93–98
[2023-04-27 04:42] LABS: Basophils # (auto) 0.1 10 ^3/uL (0-0.2); Basophils % (auto) 0.6 % (0.0-2.0); Eosinophils # (auto) 0.1 10 ^3/uL (0-0.8); Hematocrit 37.5 % (41.0-53.0); Hemoglobin 12.6 g/dL (13.5-17.5); Lymphocytes # (auto) 1.5 10 ^3/uL (0.4-5.4); Mean Corpuscular Hemoglobin 32.6 pg (28.0-32.0); Mean Corpuscular Hgb Conc. 33.6 g/dL (32.0-36.0); Mean Corpuscular Volume 96.9 fL (80.0-100.0); Monocytes # (auto) 0.7 10 ^3/uL (0-1.3); Monocytes % (auto) 7.8 % (0.0-12.0); Neutrophils # (auto) 6.8 10 ^3/uL (1.6-8.6); Neutrophils % (auto) 74.6 % (37.0-80.0); Red Blood Cells 3.87 10^6/uL (4.5-5.90); Red Cell Distribution Width 13.3 % (11.8-14.3); White Blood Cell 9.1 10^3/uL (4.4-10.8)
[2023-04-27 05:28] LABS: Anion Gap 7 (5-15); Carbon Dioxide 23 mmol/L (20-30); Chloride 107 mmol/L (98-107); Sodium 137 mmol/L (136-145)
[2023-04-27 05:30] LABS: Calcium 8.5 mg/dL (8.7-10.4)
[2023-04-27 05:34] LABS: BUN/Creatinine Ratio 10.3 (10.0-20.0); Blood Urea Nitrogen 16 mg/dL (9-23); Glucose 119 mg/dL (74-106)
[2023-04-27] MEDS: FINASTERIDE 5 MG TAB PO SCH (09:36)
[2023-04-27] MEDS: CARVEDILOL 3.125 MG TAB PO SCH ×2 (09:39→22:31)
[2023-04-27] MEDS: cefTRIAXone 1GM/50ML D5W 50 ML IV SCH (09:40)
[2023-04-27] MEDS ORDERED: FLUCONAZOLE 100 MG TAB PO ONE (13:15)
[2023-04-27] MEDS: ATORVASTATIN 20 MG TAB PO SCH (22:30)
[2023-04-28] VITALS (7 sets, daily range): BP systolic 111–118; BP diastolic 60–76; PULSE 66–96; RESP 16–20; TEMP 98.2–98.7; O2SAT 93–98
[2023-04-28 05:31] LABS: Basophils # (auto) 0.1 10 ^3/uL (0-0.2); Basophils % (auto) 0.6 % (0.0-2.0); Eosinophils # (auto) 0.1 10 ^3/uL (0-0.8); Eosinophils % (auto) 1.3 % (0.0-7.0); Hematocrit 36.5 % (41.0-53.0); Lymphocytes # (auto) 1.3 10 ^3/uL (0.4-5.4); Lymphocytes % (auto) 13.6 % (10.0-50.0); Mean Corpuscular Hemoglobin 31.8 pg (28.0-32.0); Mean Corpuscular Hgb Conc. 32.9 g/dL (32.0-36.0); Mean Corpuscular Volume 96.6 fL (80.0-100.0); Monocytes # (auto) 0.7 10 ^3/uL (0-1.3); Monocytes % (auto) 7.3 % (0.0-12.0); Neutrophils # (auto) 7.2 10 ^3/uL (1.6-8.6); Neutrophils % (auto) 77.2 % (37.0-80.0); Red Blood Cells 3.78 10^6/uL (4.5-5.90); Red Cell Distribution Width 13.5 % (11.8-14.3); White Blood Cell 9.3 10^3/uL (4.4-10.8)
[2023-04-28 05:49] LABS: Alanine Aminotransferase 14 U/L (7-40); Albumin 3.2 g/dL (3.2-4.8); Alkaline Phosphatase 63 U/L (46-116); Anion Gap 6 (5-15); Aspartate Aminotransferase 21 U/L (13-40); BUN/Creatinine Ratio 9.8 (10.0-20.0); Bilirubin, Total 0.5 mg/dL (0.2-1.0); Blood Urea Nitrogen 12 mg/dL (9-23); Calcium 8.5 mg/dL (8.5-10.1); Carbon Dioxide 24 mmol/L (20-30); Chloride 108 mmol/L (98-107); Glucose 84 mg/dL (74-106); Potassium 4.3 mmol/L (3.5-5.1); Sodium 138 mmol/L (136-145); Total Protein 5.6 g/dL (5.7-8.2)
[2023-04-28] MEDS: cefTRIAXone 1GM/50ML D5W 50 ML IV SCH (08:28)
[2023-04-28] MEDS: FINASTERIDE 5 MG TAB PO SCH ×2 (08:28→10:00)
[2023-04-28] MEDS: EMPAGLIFLOZIN 10 MG TAB PO SCH (08:28)
[2023-04-28] MEDS: CARVEDILOL 3.125 MG TAB PO SCH ×2 (08:30→22:46)
[2023-04-28] MEDS: ATORVASTATIN 20 MG TAB PO SCH (22:46)
[2023-04-29 04:52] VITALS: BP 113/75; PULSE 90; RESP 16; TEMP 98.3; O2SAT 93
[2023-04-29 08:00] VITALS: PULSE 70; RESP 18; O2SAT 98
[2023-04-29] MEDS: cefTRIAXone 1GM/50ML D5W 50 ML IV SCH (08:56)
[2023-04-29] MEDS: CARVEDILOL 3.125 MG TAB PO SCH ×2 (08:58→22:38)
[2023-04-29] MEDS: EMPAGLIFLOZIN 10 MG TAB PO SCH (08:58)
[2023-04-29] MEDS: FINASTERIDE 5 MG TAB PO SCH ×2 (08:58→10:00)
[2023-04-29 09:00] VITALS: BP 98/65; PULSE 73; RESP 18; TEMP 98.2; O2SAT 96
[2023-04-29 13:00] VITALS: BP 113/80; PULSE 62; RESP 16; TEMP 98; O2SAT 96
[2023-04-29 17:00] VITALS: BP 107/71; PULSE 65; RESP 14; TEMP 97.6; O2SAT 98
[2023-04-29 20:00] VITALS: PULSE 62; RESP 18; O2SAT 96
[2023-04-29] MEDS: ATORVASTATIN 20 MG TAB PO SCH (22:37)
[2023-04-30] VITALS (7 sets, daily range): BP systolic 106–136; BP diastolic 66–82; PULSE 62–99; RESP 14–20; TEMP 97.8–98.2; O2SAT 94–98
[2023-04-30] MEDS: FLUCONAZOLE 100 MG TAB PO SCH (08:17)
[2023-04-30] MEDS: cefTRIAXone 1GM/50ML D5W 50 ML IV SCH (08:17)
[2023-04-30] MEDS: CARVEDILOL 3.125 MG TAB PO SCH ×2 (08:18→21:26)
[2023-04-30] MEDS: EMPAGLIFLOZIN 10 MG TAB PO SCH (08:18)
[2023-04-30] MEDS: FINASTERIDE 5 MG TAB PO SCH (08:19)
[2023-04-30] MEDS: ATORVASTATIN 20 MG TAB PO SCH (21:23)
[2023-05-01 05:00] VITALS: BP 99/57; PULSE 61; RESP 15; TEMP 98.5; O2SAT 99
[2023-05-01 06:34] LABS: Basophils # (auto) 0.1 10 ^3/uL (0-0.2); Basophils % (auto) 0.5 % (0.0-2.0); Eosinophils # (auto) 0.2 10 ^3/uL (0-0.8); Hematocrit 41.5 % (41.0-53.0); Lymphocytes # (auto) 1.5 10 ^3/uL (0.4-5.4); Lymphocytes % (auto) 14.3 % (10.0-50.0); Mean Corpuscular Hemoglobin 32.8 pg (28.0-32.0); Mean Corpuscular Hgb Conc. 33.8 g/dL (32.0-36.0); Mean Corpuscular Volume 96.9 fL (80.0-100.0); Monocytes # (auto) 0.6 10 ^3/uL (0-1.3); Monocytes % (auto) 6.1 % (0.0-12.0); Neutrophils # (auto) 8.1 10 ^3/uL (1.6-8.6); Neutrophils % (auto) 77.1 % (37.0-80.0); Nucleated Red Blood Cells % 0.1 %; Red Blood Cells 4.28 10^6/uL (4.5-5.90); Red Cell Distribution Width 13.5 % (11.8-14.3); White Blood Cell 10.6 10^3/uL (4.4-10.8)
[2023-05-01 06:43] LABS: Anion Gap 7 (5-15); Calcium 8.9 mg/dL (8.5-10.1); Carbon Dioxide 23 mmol/L (20-30); Chloride 109 mmol/L (98-107); Potassium 4.2 mmol/L (3.5-5.1); Sodium 139 mmol/L (136-145)
[2023-05-01 06:45] LABS: INR 1.11 (0.9-1.15); Partial Thromboplastin Time 30.5 SEC (24.5-34.5); Prothrombin Time 11.6 sec (9.3-11.8)
[2023-05-01 06:49] LABS: BUN/Creatinine Ratio 11.9 (10.0-20.0); Blood Urea Nitrogen 14 mg/dL (9-23); Glucose 88 mg/dL (74-106)
[2023-05-01 08:36] VITALS: BP 126/57; PULSE 66; RESP 20; TEMP 98.5; O2SAT 93
[2023-05-01] MEDS: cefTRIAXone 1GM/50ML D5W 50 ML IV SCH (08:51)
[2023-05-01] MEDS: FLUCONAZOLE 100 MG TAB PO SCH (08:52)
[2023-05-01] MEDS: EMPAGLIFLOZIN 10 MG TAB PO SCH (08:52)
[2023-05-01] MEDS: FINASTERIDE 5 MG TAB PO SCH (08:53)
[2023-05-01] MEDS: CARVEDILOL 3.125 MG TAB PO SCH (08:54)
[2023-05-01 12:34] VITALS: BP 116/74; PULSE 62; RESP 20; TEMP 98.5; O2SAT 94
[2023-05-01 16:18] VITALS: BP 111/75; PULSE 60; RESP 16; TEMP 97.8; O2SAT 96
[2023-05-03] MEDS ORDERED: FINA5TAB4 PO (13:59)
== END 2023-05-01 16:28 | disposition home or self-care (01) | DRG 871 ==
LOC: ER 17:19 → WEST WING 21:10 → OVERFLOW 21:10 → WEST WING 04-27 08:46
PROVIDERS: ADMIT Nurse Practitioner; ATTEND Nurse Practitioner Acute Care
DX: A41.9 Sepsis, unspecified organism (principal); N17.0 Acute kidney failure with tubular necrosis; N13.6 Pyonephrosis; I50.22 Chronic systolic (congestive) heart failure; I11.0 Hypertensive heart disease with heart failure; I25.10 Atherosclerotic heart disease of native coronary artery without angina pectoris; I48.91 Unspecified atrial fibrillation; N21.0 Calculus in bladder; F17.210 Nicotine dependence, cigarettes, uncomplicated; I25.2 Old myocardial infarction; Z95.5 Presence of coronary angioplasty implant and graft
CPT/HCPCS: 36415; 51702; 74176; 80048; 80053; 81001; 83605; 85025; 85610; 85730; 86850; 86900; 86901; 87040; 87086; 87088; G0378

== ENCOUNTER 2023-05-04 09:08 | Inpatient (IN) | payer OTHER ==
[2023-05-03 12:00] LABS: Urine Epithelial Cast None Seen /hpf (<5)
[2023-05-03 12:38] LABS: Urine Bacteria FEW /hpf (None Seen); Urine Blood 1+ /uL (Negative); Urine Budding Yeast OCCASIONAL /hpf (None Seen); Urine Clarity HAZY (Clear); Urine Color Yellow (Yellow); Urine Protein, UAD 1+ (Negative); Urine Specific Gravity 1.024 (1.001-1.035); Urine Urobilinogen Normal (Negative); Urine WBC 45 /hpf (0 - 3); Urine pH 5.5 (5.0-8.0)
[~2023-05-04] VITALS: Ht 188 cm; Wt 93.5 kg
[~2023-05-04 09:08] MED LIST changes: +FINA5TAB4 PO; -SPIR25TA8 PO
[2023-05-04] MEDS ORDERED: CIPROFLOXACIN 400MG/200ML 200 ML IV ONE (10:06)
[2023-05-04] MEDS ORDERED: fentaNYL CITRATE 100 MCG/2 ML VL ONE ×3 (10:41→12:28)
[2023-05-04] MEDS ORDERED: PROPOFOL 10 MG/ML 20 ML IV ONE (10:41)
[2023-05-04] MEDS ORDERED: PHENYLEPHRINE HCL 10 MG/ML VL ONE (11:01)
[2023-05-04] MEDS ORDERED: ePHEDrine SULFATE 50 MG/ML AMP ONE (11:08)
[2023-05-04] MEDS ORDERED: dilTIAZem 25 MG/5 ML VIAL IV ONE ×2 (11:15→14:15)
[2023-05-04] MEDS ORDERED: ESMOLOL HCL 10 ML IV ONE (11:26)
[2023-05-04] MEDS ORDERED: SUCCINYLCHOLINE CHLORIDE 20 MG/ML 10ML VIAL IV ONE (11:49)
[2023-05-04] MEDS ORDERED: ROCURONIUM 10MG/ML 10ML VIAL IV ONE (11:54)
[2023-05-04] MEDS ORDERED: ROPIVACAINE 0.5% (5MG/ML) 20ML AMPULE IJ ONE (12:36)
[2023-05-04] MEDS ORDERED: SUGAMMADEX 200mg/2ml Vial (100MG/ML) IV ONE (12:47)
[2023-05-04] MEDS ORDERED: LIDOCAINE W/ EPINEPHRINE 1% 20ML VIAL ONE (13:02)
[2023-05-04 13:22] VITALS: O2SAT 97
[2023-05-04] MEDS ORDERED: HYDROmorphone HCL 2 MG/ML VL/or syr IV PRN (13:45)
[2023-05-04] MEDS ORDERED: ONDANSETRON HCL 4 MG/2 ML VIAL IV PRN ×2 (13:45→14:15)
[2023-05-04] MEDS ORDERED: MORPHINE SULFATE INJ 2 MG/ml SYRG IV PRN ×2 (14:15)
[2023-05-04] MEDS ORDERED: MAGNESIUM SULFATE 1GM/100ML 100 ML IV ONE (14:15)
[2023-05-04] MEDS ORDERED: DOCUSATE SOD 100 MG CAP PO PRN (14:15)
[2023-05-04] MEDS ORDERED: NITROGLYCERIN 0.4 MG SL TAB SL PRN ×2 (14:15)
[2023-05-04] MEDS ORDERED: ACETAMINOPHEN 325 MG TAB PO PRN (14:15)
[2023-05-04] MEDS ORDERED: dilTIAZem 120MG ER CAP PO ONE (14:30)
[2023-05-04 14:44] LABS: Basophils # (auto) 0.1 10 ^3/uL (0-0.2); Basophils % (auto) 0.8 % (0.0-2.0); Eosinophils # (auto) 0.1 10 ^3/uL (0-0.8); Eosinophils % (auto) 0.9 % (0.0-7.0); Hemoglobin 13.8 g/dL (13.5-17.5); Lymphocytes # (auto) 1.1 10 ^3/uL (0.4-5.4); Lymphocytes % (auto) 13.9 % (10.0-50.0); Mean Corpuscular Hemoglobin 32.4 pg (28.0-32.0); Mean Corpuscular Hgb Conc. 32.9 g/dL (32.0-36.0); Mean Corpuscular Volume 98.5 fL (80.0-100.0); Monocytes # (auto) 0.6 10 ^3/uL (0-1.3); Neutrophils % (auto) 76.4 % (37.0-80.0); Nucleated Red Blood Cells % 0.1 %; Red Blood Cells 4.26 10^6/uL (4.5-5.90); Red Cell Distribution Width 13.9 % (11.8-14.3); White Blood Cell 7.8 10^3/uL (4.4-10.8)
[2023-05-04] MEDS ORDERED: DEXTROSE (50%) 50ML SYRG IV PRN (15:00)
[2023-05-04 15:06] LABS: Alanine Aminotransferase 15 U/L (7-40); Albumin 3.6 g/dL (3.2-4.8); Alkaline Phosphatase 73 U/L (46-116); Anion Gap 3 (5-15); Aspartate Aminotransferase 15 U/L (13-40); BUN/Creatinine Ratio 16.8 (10.0-20.0); Blood Urea Nitrogen 24 mg/dL (9-23); Calcium 8.5 mg/dL (8.7-10.4); Carbon Dioxide 26 mmol/L (20-30); Chloride 110 mmol/L (98-107); Glucose 108 mg/dL (74-106); Magnesium 1.6 mg/dL (1.6-2.6); Potassium 4.8 mmol/L (3.5-5.1); Sodium 139 mmol/L (136-145)
[2023-05-04 15:07] LABS: Bilirubin, Total 0.7 mg/dL (0.2-1.0); Total Protein 6.2 g/dL (5.7-8.2)
[2023-05-04 15:10] LABS: Triglycerides 67 mg/dL (< 150)
[2023-05-04 15:11] LABS: LDL Cholesterol 66 mg/dL (< 100)
[2023-05-04 15:12] LABS: Cholesterol 124 mg/dL (< 200); HDL Cholesterol 44 mg/dL (40-59)
[2023-05-04 15:18] VITALS: BP 108/65; PULSE 76; RESP 18; TEMP 97.4; O2SAT 94
[2023-05-04 17:00] VITALS: BP 102/77; PULSE 72; RESP 17; TEMP 97.2; O2SAT 95
[2023-05-04] MEDS: InsuLIN REG 1unit/0.01ml Soln (100units/ml) SC SCH ×2 (17:00→22:00)
[2023-05-04] MEDS: ACCU-CHEK COMFORT CURVE STRIP VI SCH ×2 (17:16→22:34)
[2023-05-04 20:00] VITALS: BP 99/64; PULSE 85; PULSE 88; RESP 18; TEMP 97.6; O2SAT 98
[2023-05-04 22:00] VITALS: BP 99/64; PULSE 85; RESP 18; TEMP 97.6; O2SAT 98
[2023-05-04] MEDS: APIXABAN 5 MG TAB PO SCH (22:00)
[2023-05-04] MEDS: ATORVASTATIN 20 MG TAB PO SCH (22:16)
[2023-05-04] MEDS: HYDROcodone-ACET 5/325MG TAB PO PRN (22:16)
[2023-05-04] MEDS: CIPROFLOXACIN 400MG/200ML 200 ML IV SCH (22:17)
[2023-05-05] VITALS (7 sets, daily range): BP systolic 100–122; BP diastolic 54–78; PULSE 55–113; RESP 16–20; TEMP 98–98.6; O2SAT 92–100
[2023-05-05] MEDS: MORPHINE SULFATE INJ 2 MG/ml SYRG IV PRN ×2 (04:06→23:55)
[2023-05-05] MEDS: ACCU-CHEK COMFORT CURVE STRIP VI SCH (06:19)
[2023-05-05] MEDS: InsuLIN REG 1unit/0.01ml Soln (100units/ml) SC SCH (06:22)
[2023-05-05] MEDS: HYDROcodone-ACET 5/325MG TAB PO PRN ×3 (07:26→20:10)
[2023-05-05 07:38] LABS: Basophils # (auto) 0.1 10 ^3/uL (0-0.2); Basophils % (auto) 0.5 % (0.0-2.0); Eosinophils # (auto) 0 10 ^3/uL (0-0.8); Eosinophils % (auto) 0.4 % (0.0-7.0); Hematocrit 39.3 % (41.0-53.0); Hemoglobin 13.1 g/dL (13.5-17.5); Lymphocytes # (auto) 0.9 10 ^3/uL (0.4-5.4); Lymphocytes % (auto) 8.7 % (10.0-50.0); Mean Corpuscular Hemoglobin 32.4 pg (28.0-32.0); Mean Corpuscular Hgb Conc. 33.2 g/dL (32.0-36.0); Mean Corpuscular Volume 97.4 fL (80.0-100.0); Monocytes % (auto) 9.3 % (0.0-12.0); Neutrophils # (auto) 8.6 10 ^3/uL (1.6-8.6); Neutrophils % (auto) 81.1 % (37.0-80.0); Red Blood Cells 4.04 10^6/uL (4.5-5.90); Red Cell Distribution Width 13.8 % (11.8-14.3); White Blood Cell 10.6 10^3/uL (4.4-10.8)
[2023-05-05 07:46] LABS: Alanine Aminotransferase 17 U/L (7-40); Albumin 3.4 g/dL (3.2-4.8); Alkaline Phosphatase 67 U/L (46-116); Anion Gap 7 (5-15); Aspartate Aminotransferase 20 U/L (13-40); BUN/Creatinine Ratio 12.6 (10.0-20.0); Blood Urea Nitrogen 15 mg/dL (9-23); Calcium 8.4 mg/dL (8.5-10.1); Carbon Dioxide 24 mmol/L (20-30); Chloride 107 mmol/L (98-107); Glucose 92 mg/dL (74-106); Potassium 4.5 mmol/L (3.5-5.1); Sodium 138 mmol/L (136-145)
[2023-05-05 07:47] LABS: Total Protein 5.8 g/dL (5.7-8.2)
[2023-05-05] MEDS: APIXABAN 5 MG TAB PO SCH (08:57)
[2023-05-05] MEDS: CIPROFLOXACIN 400MG/200ML 200 ML IV SCH ×2 (08:57→21:18)
[2023-05-05] MEDS ORDERED: EMPAGLIFLOZIN 10 MG TAB PO SCH (10:00)
[2023-05-05 10:40] LABS: INR 1.1 (0.9-1.15); Partial Thromboplastin Time 28.1 SEC (24.5-34.5); Prothrombin Time 11.5 sec (9.3-11.8)
[2023-05-05] MEDS ORDERED: ACET-1882 PO (12:18)
[2023-05-05] MEDS ORDERED: CIPR250T26 GT (12:18)
[2023-05-05] MEDS: METOPROLOL TARTRATE 1MG/1ML-5ML VIAL IV PRN (18:53)
[2023-05-05] MEDS: HEPARIN SODIUM (PORCINE) 5000 UNITS/ML 1ML VIAL SC SCH (21:27)
[2023-05-05] MEDS: ATORVASTATIN 20 MG TAB PO SCH (21:28)
[2023-05-06] MEDS: METOPROLOL TARTRATE 1MG/1ML-5ML VIAL IV PRN (00:37)
[2023-05-06] MEDS ORDERED: METOPROLOL TARTRATE 1MG/1ML-5ML VIAL IV ONE (03:30)
[2023-05-06] MEDS: HYDROcodone-ACET 5/325MG TAB PO PRN ×2 (03:36→17:03)
[2023-05-06 05:00] VITALS: BP 109/82; PULSE 85; RESP 18; TEMP 98.4; O2SAT 96
[2023-05-06 05:51] LABS: Basophils # (auto) 0.1 10 ^3/uL (0-0.2); Basophils % (auto) 0.9 % (0.0-2.0); Eosinophils # (auto) 0.1 10 ^3/uL (0-0.8); Eosinophils % (auto) 0.5 % (0.0-7.0); Hemoglobin 13.2 g/dL (13.5-17.5); Lymphocytes % (auto) 9.5 % (10.0-50.0); Mean Corpuscular Hemoglobin 32.2 pg (28.0-32.0); Mean Corpuscular Volume 97.5 fL (80.0-100.0); Monocytes # (auto) 1.1 10 ^3/uL (0-1.3); Monocytes % (auto) 9.8 % (0.0-12.0); Neutrophils # (auto) 8.7 10 ^3/uL (1.6-8.6); Neutrophils % (auto) 79.3 % (37.0-80.0); Nucleated Red Blood Cells % 0.1 %; Red Cell Distribution Width 13.5 % (11.8-14.3)
[2023-05-06 06:09] LABS: Alanine Aminotransferase 10 U/L (7-40); Albumin 3.5 g/dL (3.2-4.8); Alkaline Phosphatase 64 U/L (46-116); Anion Gap 4 (5-15); Aspartate Aminotransferase 14 U/L (13-40); BUN/Creatinine Ratio 11.5 (10.0-20.0); Bilirubin, Total 0.9 mg/dL (0.2-1.0); Blood Urea Nitrogen 14 mg/dL (9-23); Calcium 8.4 mg/dL (8.7-10.4); Carbon Dioxide 25 mmol/L (20-30); Chloride 107 mmol/L (98-107); Glucose 94 mg/dL (74-106); Potassium 4.7 mmol/L (3.5-5.1); Sodium 136 mmol/L (136-145)
[2023-05-06 08:00] VITALS: PULSE 128
[2023-05-06 09:07] VITALS: BP 111/89; PULSE 55; RESP 19; TEMP 97.8; O2SAT 96
[2023-05-06] MEDS: CIPROFLOXACIN 400MG/200ML 200 ML IV SCH (10:09)
[2023-05-06] MEDS: HEPARIN SODIUM (PORCINE) 5000 UNITS/ML 1ML VIAL SC SCH (10:15)
[2023-05-06 13:00] VITALS: BP 126/74; PULSE 50; RESP 19; TEMP 98.3; O2SAT 97
[2023-05-06 17:04] VITALS: BP 112/79; PULSE 52; RESP 17; TEMP 98.1; O2SAT 97
== END 2023-05-06 18:49 | disposition home or self-care (01) | DRG 660 ==
LOC: SUR 09:08 → TELE 14:21 → WEST WING 16:11 → TELE-WESTW 05-05 10:46
PROVIDERS: ADMIT Internal Medicine; ATTEND Internal Medicine
PROC: 0TC13ZZ Extirpation of Matter from Left Kidney, Percutaneous Approach (ICD-10-PCS; principal; 2023-05-04 10:50)
DX: N20.0 Calculus of kidney (principal); I48.19 Other persistent atrial fibrillation; N39.0 Urinary tract infection, site not specified; R57.9 Shock, unspecified; N21.0 Calculus in bladder; I25.5 Ischemic cardiomyopathy; E11.9 Type 2 diabetes mellitus without complications; E66.9 Obesity, unspecified; Z68.26 Body mass index [BMI] 26.0-26.9, adult; E78.5 Hyperlipidemia, unspecified; I11.0 Hypertensive heart disease with heart failure; I50.9 Heart failure, unspecified; I25.10 Atherosclerotic heart disease of native coronary artery without angina pectoris; Z53.31 Laparoscopic surgical procedure converted to open procedure; Z79.01 Long term (current) use of anticoagulants; Z87.442 Personal history of urinary calculi; Z95.810 Presence of automatic (implantable) cardiac defibrillator; Z98.61 Coronary angioplasty status
CPT/HCPCS: 36415; 80053; 80061; 81001; 82306; 82360; 82607; 82962; 83036; 83735; 84443; 85025; 85610; 85730; 87086; G0378; J0330; J2704

== ENCOUNTER → 2023-05-25 | Outpatient (CLI) | payer OTHER ==
[~2023-05-25] MED LIST changes: -CEPH500C PO; +CIPR250T26 GT; -EMPA1TAB PO
[2023-05-25 08:34] LABS: Basophils # (auto) 0.1 10 ^3/uL (0-0.2); Eosinophils # (auto) 0.2 10 ^3/uL (0-0.8); Eosinophils % (auto) 2.3 % (0.0-7.0); Hematocrit 39.6 % (41.0-53.0); Hemoglobin 12.9 g/dL (13.5-17.5); Lymphocytes % (auto) 14.1 % (10.0-50.0); Mean Corpuscular Hemoglobin 31.7 pg (28.0-32.0); Mean Corpuscular Hgb Conc. 32.5 g/dL (32.0-36.0); Mean Corpuscular Volume 97.7 fL (80.0-100.0); Monocytes # (auto) 0.9 10 ^3/uL (0-1.3); Monocytes % (auto) 11.9 % (0.0-12.0); Neutrophils # (auto) 5.2 10 ^3/uL (1.6-8.6); Neutrophils % (auto) 70.7 % (37.0-80.0); Red Blood Cells 4.05 10^6/uL (4.5-5.90); White Blood Cell 7.3 10^3/uL (4.4-10.8)
[2023-05-25 09:13] LABS: Prostate Specific Antigen 2.42 ng/mL (0.0-4.0)
[2023-05-25 09:16] LABS: Alanine Aminotransferase 20 U/L (7-40); Alkaline Phosphatase 72 U/L (46-116); Anion Gap 8 (5-15); Aspartate Aminotransferase 20 U/L (13-40); BUN/Creatinine Ratio 11.2 (10.0-20.0); Bilirubin, Total 0.9 mg/dL (0.2-1.0); Blood Urea Nitrogen 20 mg/dL (9-23); Calcium 9.4 mg/dL (8.5-10.1); Carbon Dioxide 24 mmol/L (20-30); Chloride 110 mmol/L (98-107); Cholesterol 124 mg/dL (< 200); Glucose 98 mg/dL (74-106); HDL Cholesterol 53 mg/dL (40-59); LDL Cholesterol 58 mg/dL (< 100); Potassium 4.2 mmol/L (3.5-5.1); Sodium 142 mmol/L (136-145); Total Protein 6.2 g/dL (5.7-8.2); Triglycerides 74 mg/dL (< 150)
[2023-05-25 09:17] LABS: Free T4 (Free Thyroxine) 1.16 ng/dL (0.89-1.76)
[2023-05-25 09:35] LABS: Urine Bacteria FEW /hpf (None Seen); Urine Blood 1+ /uL (Negative); Urine Clarity Clear (Clear); Urine Color Colorless (Yellow); Urine Protein, UAD Negative (Negative); Urine Specific Gravity 1.009 (1.001-1.035); Urine Urobilinogen Normal (Negative); Urine WBC 15 /hpf (0 - 3)
== END | disposition home or self-care (01) ==
LOC: LAB 08:22
DX: I13.0 Hypertensive heart and chronic kidney disease with heart failure and stage 1 through stage 4 chronic kidney disease, or unspecified chronic kidney disease (principal); I50.22 Chronic systolic (congestive) heart failure; N18.2 Chronic kidney disease, stage 2 (mild); N40.1 Benign prostatic hyperplasia with lower urinary tract symptoms; I48.19 Other persistent atrial fibrillation
CPT/HCPCS: 36415; 80053; 80061; 81001; 84153; 84439; 84443; 85025

== ENCOUNTER 2023-09-22 06:03 | Inpatient (IN) | payer OTHER ==
[~2023-09-22] VITALS: Ht 188 cm; Wt 102.0 kg
[2023-09-22] MEDS: SODIUM CHLORIDE 0.9% 500 ML IV ONE (06:36)
[2023-09-22] MEDS: NOREPINEPHRINE 8 MG/250ML KIT 0 ML IV ONE (06:39)
[2023-09-22 06:41] VITALS: RESP 20; O2SAT 97
[2023-09-22] MEDS ORDERED: NOREPINEPHRINE 8 MG/250ML KIT 250 ML IV SCH (06:45)
[2023-09-22] MEDS: AMIODARONE BOLUS KIT 100 ML IV ONE (06:50)
[2023-09-22 07:02] LABS: Alanine Aminotransferase 94 U/L (7-40); Albumin 4.1 g/dL (3.2-4.8); Alkaline Phosphatase 105 U/L (46-116); Anion Gap 10 (5-15); Aspartate Aminotransferase 101 U/L (13-40); BUN/Creatinine Ratio 12.3 (10.0-20.0); Blood Urea Nitrogen 28 mg/dL (9-23); Calcium 9.6 mg/dL (8.5-10.1); Carbon Dioxide 18 mmol/L (20-30); Chloride 107 mmol/L (98-107); Glucose 140 mg/dL (74-106); Potassium 4.9 mmol/L (3.5-5.1); Sodium 135 mmol/L (136-145)
[2023-09-22 07:03] LABS: Bilirubin, Total 1.5 mg/dL (0.2-1.0); Total Protein 7.1 g/dL (5.7-8.2)
[2023-09-22 07:07] LABS: Basophils # (auto) 0.1 10 ^3/uL (0-0.2); Basophils % (auto) 0.4 % (0.0-2.0); Eosinophils # (auto) 0 10 ^3/uL (0-0.8); Eosinophils % (auto) 0.1 % (0.0-7.0); Hematocrit 43.1 % (41.0-53.0); Hemoglobin 14.2 g/dL (13.5-17.5); Lymphocytes % (auto) 14.1 % (10.0-50.0); Mean Corpuscular Hemoglobin 31.7 pg (28.0-32.0); Mean Corpuscular Hgb Conc. 32.9 g/dL (32.0-36.0); Mean Corpuscular Volume 96.2 fL (80.0-100.0); Monocytes # (auto) 1.1 10 ^3/uL (0-1.3); Monocytes % (auto) 7.5 % (0.0-12.0); Neutrophils % (auto) 77.9 % (37.0-80.0); Nucleated Red Blood Cells % 0.2 %; Red Blood Cells 4.48 10^6/uL (4.5-5.90)
[2023-09-22 07:30] VITALS: PULSE 63; RESP 30; O2SAT 97
[2023-09-22] MEDS: AMIODARONE 450mg/250ml AE 250 ML IV SCH (07:43)
[2023-09-22] MEDS: LABETALOL HCL 5 MG/ML 4ML SYRINGE IV ONE (08:27)
[2023-09-22] MEDS: FUROSEMIDE 40 MG/4 ML VIAL IV ONE (08:32)
[2023-09-22] MEDS: MAGNESIUM SULFATE 1GM/100ML 100 ML IV ONE (09:41)
[2023-09-22] MEDS: FINASTERIDE 5 MG TAB PO SCH (10:21)
[2023-09-22] MEDS ORDERED: DOCUSATE SOD 100 MG CAP PO PRN (11:00)
[2023-09-22] MEDS ORDERED: HYDROcodone-ACET 5/325MG TAB PO PRN (11:00)
[2023-09-22] MEDS ORDERED: MORPHINE SULFATE INJ 2 MG/ml SYRG IV PRN (11:00)
[2023-09-22] MEDS ORDERED: NITROGLYCERIN 0.4 MG SL TAB SL PRN (11:00)
[2023-09-22] MEDS ORDERED: ONDANSETRON HCL 4 MG/2 ML VIAL IV PRN (11:00)
[2023-09-22] MEDS ORDERED: ACETAMINOPHEN 325 MG TAB PO PRN (11:00)
[2023-09-22 12:07] LABS: INR 1.44 (0.9-1.15); Partial Thromboplastin Time 27.2 SEC (24.5-34.5); Prothrombin Time 14.9 sec (9.3-11.8)
[2023-09-22 12:41] LABS: Urine Bacteria FEW /hpf (None Seen); Urine Blood 2+ /uL (Negative); Urine Clarity Turbid (Clear); Urine Color Yellow (Yellow); Urine Hyaline Cast MANY /lpf (0 - 2); Urine Protein, UAD 1+ (Negative); Urine Specific Gravity 1.014 (1.001-1.035); Urine Urobilinogen Normal (Negative); Urine WBC 19 /hpf (0 - 3)
[2023-09-22] MEDS: SODIUM CHLOR 0.9% PF (SALINE LOCK) 10ML VIAL/SYR IV SCH (14:01)
[2023-09-22] MEDS: METOPROLOL TARTRATE 1MG/1ML-5ML VIAL IV ONE ×3 (16:16→16:26)
[2023-09-22] MEDS: DIGOXIN (250MCG/ML) 2 ML AMPULE IV ONE (17:50)
[2023-09-22 20:37] VITALS: O2SAT 97
[2023-09-22 21:00] VITALS: BP 128/80; PULSE 95; RESP 16; TEMP 97.7; O2SAT 95
[2023-09-22 21:13] LABS: Body Fluid Polymorphonuclear 27 % (0-25); Body Fluid Red Blood Cells 378 CUMM (0-2000); Body Fluid White Blood Cells 223 CUMM (0-200)
[2023-09-22 21:46] VITALS: BP 128/80; PULSE 105; PULSE 70; RESP 18; RESP 20; TEMP 98.6; O2SAT 96
[2023-09-22] MEDS ORDERED: ATORVASTATIN CALCIUM 20 MG PO SCH (22:00)
[2023-09-22] MEDS ORDERED: APIXABAN 5 MG TAB PO SCH (22:00)
[2023-09-22] MEDS: ATORVASTATIN 20 MG TAB PO SCH (23:11)
[2023-09-22] MEDS: APIXABAN 2.5 MG TAB PO SCH (23:11)
[2023-09-23] VITALS (8 sets, daily range): BP systolic 93–132; BP diastolic 60–78; PULSE 55–97; RESP 16–26; TEMP 97.5–98; O2SAT 93–95
[2023-09-23 05:46] LABS: Basophils # (auto) 0 10 ^3/uL (0-0.2); Basophils % (auto) 0.3 % (0.0-2.0); Eosinophils # (auto) 0 10 ^3/uL (0-0.8); Hematocrit 39.5 % (41.0-53.0); Hemoglobin 13.2 g/dL (13.5-17.5); Lymphocytes # (auto) 1.6 10 ^3/uL (0.4-5.4); Lymphocytes % (auto) 13.6 % (10.0-50.0); Mean Corpuscular Hemoglobin 31.6 pg (28.0-32.0); Mean Corpuscular Hgb Conc. 33.6 g/dL (32.0-36.0); Mean Corpuscular Volume 94.1 fL (80.0-100.0); Monocytes # (auto) 0.7 10 ^3/uL (0-1.3); Monocytes % (auto) 6.4 % (0.0-12.0); Neutrophils # (auto) 9.2 10 ^3/uL (1.6-8.6); Neutrophils % (auto) 79.7 % (37.0-80.0); Nucleated Red Blood Cells % 0.1 %; Red Cell Distribution Width 14.6 % (11.8-14.3); White Blood Cell 11.5 10^3/uL (4.4-10.8)
[2023-09-23 06:09] LABS: Albumin 3.2 g/dL (3.2-4.8); Alkaline Phosphatase 130 U/L (46-116); Anion Gap 10 (5-15); BUN/Creatinine Ratio 19.4 (10.0-20.0); Bilirubin, Total 0.9 mg/dL (0.2-1.0); Calcium 8.8 mg/dL (8.7-10.4); Carbon Dioxide 18 mmol/L (20-30); Chloride 109 mmol/L (98-107); Glucose 93 mg/dL (74-106); Potassium 4.3 mmol/L (3.5-5.1); Sodium 137 mmol/L (136-145); Total Protein 5.5 g/dL (5.7-8.2)
[2023-09-23 06:20] LABS: Aspartate Aminotransferase 1519 U/L (13-40); Blood Urea Nitrogen 40 mg/dL (9-23)
[2023-09-23 06:21] LABS: Alanine Aminotransferase 1652 U/L (7-40)
[2023-09-23] MEDS: DIGOXIN 0.125 MG TAB PO SCH (09:33)
[2023-09-23] MEDS: EMPAGLIFLOZIN 10 MG TAB PO SCH (09:33)
[2023-09-23] MEDS: METOPROLOL TARTRATE 25 MG TAB PO SCH (10:00)
[2023-09-23] MEDS: FUROSEMIDE 40 MG/4 ML VIAL IV ONE (10:18)
[2023-09-23 14:11] LABS: Bilirubin, Direct 0.4 mg/dL (<0.3)
[2023-09-23 14:13] LABS: Magnesium 1.8 mg/dL (1.6-2.6); Phosphorus 4.6 mg/dL (2.4-5.1)
[2023-09-23 17:33] LABS: Protein, Urine < 6.0 mg/dL (0.0-11.9)
[2023-09-23 17:34] LABS: Creatinine, Urine 14.42 mg/dL (30.0-125.0)
[2023-09-23 17:35] LABS: Creatinine, Urine 14.42 mg/dL (30.0-125.0); Urine Protein/Creatinine Ratio 0.42
[2023-09-23] MEDS: FUROSEMIDE 20 MG/2 ML VIAL IV SCH (17:59)
[2023-09-24 01:00] VITALS: BP 103/77; PULSE 71; RESP 20; TEMP 97.8; O2SAT 96
[2023-09-24 05:00] VITALS: BP 93/67; PULSE 76; RESP 22; TEMP 97.6; O2SAT 100
[2023-09-24 07:19] LABS: Alanine Aminotransferase 993 U/L (7-40); Alkaline Phosphatase 129 U/L (46-116); Anion Gap 6 (5-15); Aspartate Aminotransferase 475 U/L (13-40); BUN/Creatinine Ratio 19.8 (10.0-20.0); Blood Urea Nitrogen 39 mg/dL (9-23); Calcium 8.9 mg/dL (8.5-10.1); Carbon Dioxide 25 mmol/L (20-30); Chloride 107 mmol/L (98-107); Glucose 86 mg/dL (74-106); Potassium 3.8 mmol/L (3.5-5.1); Sodium 138 mmol/L (136-145)
[2023-09-24 07:20] LABS: Albumin 3.4 g/dL (3.2-4.8)
[2023-09-24 07:21] LABS: Bilirubin, Total 0.9 mg/dL (0.2-1.0); Total Protein 5.9 g/dL (5.7-8.2)
[2023-09-24 08:00] VITALS: PULSE 91
[2023-09-24 09:00] VITALS: BP 103/70; PULSE 116; RESP 17; TEMP 99.8; O2SAT 97
[2023-09-24] MEDS ORDERED: CIPR500T4 PO (13:57)
[2023-09-24] MEDS ORDERED: TAMS-35 PO (13:57)
[2023-09-24] MEDS: TAMSULOSIN HYDROCHLORIDE 0.4 MG CAP PO ONE (14:33)
[2023-09-24] MEDS: cefTRIAXone 1GM/50ML D5W 50 ML IV SCH (14:34)
[2023-09-24 14:42] VITALS: BP 107/80; PULSE 85; RESP 17; TEMP 98.7; O2SAT 99
[2023-09-24 15:37] VITALS: BP 109/78
[2023-09-26 10:07] LABS: Protein, Body Fluid 1.4 g/dL (.)
== END 2023-09-24 16:25 | disposition home or self-care (01) | DRG 280 ==
LOC: ER 06:03 → TELE 10:58 → TELE-WESTW 21:25
PROVIDERS: ADMIT Nurse Practitioner Family; ATTEND Nurse Practitioner Family
PROC: 0W993ZZ Drainage of Right Pleural Cavity, Percutaneous Approach (ICD-10-PCS; principal; 2023-09-22)
DX: I21.4 Non-ST elevation (NSTEMI) myocardial infarction (principal); I50.43 Acute on chronic combined systolic (congestive) and diastolic (congestive) heart failure; J96.00 Acute respiratory failure, unspecified whether with hypoxia or hypercapnia; N17.0 Acute kidney failure with tubular necrosis; I13.0 Hypertensive heart and chronic kidney disease with heart failure and stage 1 through stage 4 chronic kidney disease, or unspecified chronic kidney disease; B17.9 Acute viral hepatitis, unspecified; E87.20 Acidosis, unspecified; J91.8 Pleural effusion in other conditions classified elsewhere; I48.19 Other persistent atrial fibrillation; N13.6 Pyonephrosis; E66.9 Obesity, unspecified; E78.5 Hyperlipidemia, unspecified; I25.10 Atherosclerotic heart disease of native coronary artery without angina pectoris; I25.5 Ischemic cardiomyopathy; N18.9 Chronic kidney disease, unspecified; K76.1 Chronic passive congestion of liver; J45.909 Unspecified asthma, uncomplicated; F17.210 Nicotine dependence, cigarettes, uncomplicated; N40.1 Benign prostatic hyperplasia with lower urinary tract symptoms; R33.8 Other retention of urine; Z95.5 Presence of coronary angioplasty implant and graft; Z90.49 Acquired absence of other specified parts of digestive tract; Z82.49 Family history of ischemic heart disease and other diseases of the circulatory system; Z68.28 Body mass index [BMI] 28.0-28.9, adult; Z79.01 Long term (current) use of anticoagulants; Z87.442 Personal history of urinary calculi
CPT/HCPCS: 36415; 71045; 74176; 76604; 76700; 76942; 80053; 80076; 81001; 82306; 82570; 83690; 83735; 83880; 83970; 83986; 84100; 84156; 84300; 84443; 84484; 85025; 85610; 85730; 87070; 87086; 87205; 89051; 93005; 93306; 99291; G0378

== ENCOUNTER → 2023-09-28 | Outpatient (CLI) | payer OTHER ==
[~2023-09-28] MED LIST changes: -ACET-1882 PO; -CIPR250T26 GT; +CIPR500T4 PO; -ERGO1CAP23 PO; +TAMS-35 PO
[2023-09-28 14:20] LABS: Basophils # (auto) 0.1 10 ^3/uL (0-0.2); Basophils % (auto) 0.8 % (0.0-2.0); Eosinophils # (auto) 0.1 10 ^3/uL (0-0.8); Eosinophils % (auto) 1.8 % (0.0-7.0); Hematocrit 42.7 % (41.0-53.0); Hemoglobin 14.3 g/dL (13.5-17.5); Lymphocytes # (auto) 1.6 10 ^3/uL (0.4-5.4); Lymphocytes % (auto) 18.6 % (10.0-50.0); Mean Corpuscular Hemoglobin 31.8 pg (28.0-32.0); Mean Corpuscular Hgb Conc. 33.4 g/dL (32.0-36.0); Mean Corpuscular Volume 95.2 fL (80.0-100.0); Monocytes # (auto) 0.6 10 ^3/uL (0-1.3); Monocytes % (auto) 7.7 % (0.0-12.0); Neutrophils % (auto) 71.1 % (37.0-80.0); Red Blood Cells 4.49 10^6/uL (4.5-5.90); Red Cell Distribution Width 15.1 % (11.8-14.3); White Blood Cell 8.4 10^3/uL (4.4-10.8)
[2023-09-28 14:45] LABS: Urine Bacteria FEW /hpf (None Seen); Urine Blood Negative /uL (Negative); Urine Clarity Clear (Clear); Urine Color Light-Yellow (Yellow); Urine Protein, UAD Negative (Negative); Urine Specific Gravity 1.011 (1.001-1.035); Urine Urobilinogen Normal (Negative); Urine WBC 78 /hpf (0 - 3)
[2023-09-28 14:48] LABS: Creatinine, Urine 67.76 mg/dL (30.0-125.0)
[2023-09-28 14:50] LABS: Alanine Aminotransferase 473 U/L (7-40); Albumin 3.6 g/dL (3.2-4.8); Alkaline Phosphatase 135 U/L (46-116); Anion Gap 5 (5-15); Aspartate Aminotransferase 75 U/L (13-40); Blood Urea Nitrogen 23 mg/dL (9-23); Calcium 9.2 mg/dL (8.7-10.4); Carbon Dioxide 25 mmol/L (20-30); Chloride 109 mmol/L (98-107); Glucose 123 mg/dL (74-106); Magnesium 1.7 mg/dL (1.6-2.6); Potassium 4.2 mmol/L (3.5-5.1); Sodium 139 mmol/L (136-145); Uric Acid 5.8 mg/dL (3.7-9.2)
[2023-09-28 14:51] LABS: Bilirubin, Total 0.6 mg/dL (0.2-1.0); Total Protein 6.3 g/dL (5.7-8.2)
== END | disposition home or self-care (01) ==
LOC: LAB 13:56
PROVIDERS: ATTEND Internal Medicine Nephrology
DX: E11.22 Type 2 diabetes mellitus with diabetic chronic kidney disease (principal); N18.30 Chronic kidney disease, stage 3 unspecified; D63.1 Anemia in chronic kidney disease; R80.9 Proteinuria, unspecified; M10.9 Gout, unspecified; N39.0 Urinary tract infection, site not specified; E21.3 Hyperparathyroidism, unspecified; E55.9 Vitamin D deficiency, unspecified; E11.21 Type 2 diabetes mellitus with diabetic nephropathy
CPT/HCPCS: 36415; 80053; 81001; 82043; 82570; 83036; 83735; 83970; 84550; 85025

== ENCOUNTER 2023-10-19 20:53 | Inpatient (IN) | payer OTHER ==
[~2023-10-19] VITALS: Ht 188 cm; Wt 89.4 kg
[2023-10-19 21:35] LABS: Basophils # (auto) 0.1 10 ^3/uL (0-0.2); Basophils % (auto) 0.6 % (0.0-2.0); Eosinophils # (auto) 0 10 ^3/uL (0-0.8); Eosinophils % (auto) 0.2 % (0.0-7.0); Hematocrit 46.1 % (41.0-53.0); Hemoglobin 15.4 g/dL (13.5-17.5); Lymphocytes # (auto) 1.2 10 ^3/uL (0.4-5.4); Lymphocytes % (auto) 12.1 % (10.0-50.0); Mean Corpuscular Hemoglobin 32.2 pg (28.0-32.0); Mean Corpuscular Hgb Conc. 33.4 g/dL (32.0-36.0); Mean Corpuscular Volume 96.3 fL (80.0-100.0); Monocytes # (auto) 0.8 10 ^3/uL (0-1.3); Monocytes % (auto) 8.2 % (0.0-12.0); Neutrophils # (auto) 7.8 10 ^3/uL (1.6-8.6); Neutrophils % (auto) 78.9 % (37.0-80.0); Nucleated Red Blood Cells % 0.2 %; Red Blood Cells 4.79 10^6/uL (4.5-5.90); Red Cell Distribution Width 15.5 % (11.8-14.3); White Blood Cell 9.9 10^3/uL (4.4-10.8)
[2023-10-19] MEDS: AMIODARONE BOLUS KIT 100 ML IV ONE (21:35)
[2023-10-19] MEDS: dilTIAZem 25 MG/5 ML VIAL IV ONE ×2 (21:35→21:52)
[2023-10-19 21:46] LABS: Alanine Aminotransferase 287 U/L (7-40); Alkaline Phosphatase 212 U/L (46-116); Anion Gap 11 (5-15); Aspartate Aminotransferase 174 U/L (13-40); BUN/Creatinine Ratio 17.8 (10.0-20.0); Bilirubin, Total 1.6 mg/dL (0.2-1.0); Blood Urea Nitrogen 49 mg/dL (9-23); Calcium 9.8 mg/dL (8.5-10.1); Carbon Dioxide 16 mmol/L (20-30); Chloride 103 mmol/L (98-107); Glucose 140 mg/dL (74-106); Sodium 130 mmol/L (136-145); Total Protein 6.7 g/dL (5.7-8.2)
[2023-10-19 21:53] VITALS: PULSE 150; RESP 37; O2SAT 98
[2023-10-19] MEDS: AMIODARONE 450mg/250ml AE 250 ML IV SCH (22:09)
[2023-10-19] MEDS: NOREPINEPHRINE 8 MG/250ML KIT 250 ML IV SCH (22:09)
[2023-10-19] MEDS ORDERED: DOCUSATE SOD 100 MG CAP PO PRN (23:15)
[2023-10-19] MEDS ORDERED: ONDANSETRON HCL 4 MG/2 ML VIAL IV PRN (23:15)
[2023-10-19] MEDS ORDERED: ACETAMINOPHEN 325 MG TAB PO PRN (23:15)
[2023-10-19] MEDS ORDERED: HYDROcodone-ACET 5/325MG TAB PO PRN (23:15)
[2023-10-20] VITALS (58 sets, daily range): BP systolic 57–154; BP diastolic 28–110; PULSE 40–211; RESP 15–41; TEMP 95.1–97.9; O2SAT 76–100
[2023-10-20] MEDS ORDERED: NITROGLYCERIN 0.4 MG SL TAB SL PRN
[2023-10-20] MEDS: FUROSEMIDE 20 MG/2 ML VIAL IV ONE ×2 (00:14→09:32)
[2023-10-20 04:44] LABS: Basophils # (auto) 0.1 10 ^3/uL (0-0.2); Basophils % (auto) 0.5 % (0.0-2.0); Eosinophils # (auto) 0 10 ^3/uL (0-0.8); Hematocrit 47.9 % (41.0-53.0); Hemoglobin 15.8 g/dL (13.5-17.5); Lymphocytes # (auto) 0.9 10 ^3/uL (0.4-5.4); Lymphocytes % (auto) 5.8 % (10.0-50.0); Mean Corpuscular Hemoglobin 32.4 pg (28.0-32.0); Mean Corpuscular Volume 97.9 fL (80.0-100.0); Monocytes # (auto) 1.1 10 ^3/uL (0-1.3); Monocytes % (auto) 7.2 % (0.0-12.0); Neutrophils # (auto) 12.9 10 ^3/uL (1.6-8.6); Neutrophils % (auto) 86.5 % (37.0-80.0); Nucleated Red Blood Cells % 0.4 %; Red Blood Cells 4.89 10^6/uL (4.5-5.90); Red Cell Distribution Width 15.3 % (11.8-14.3); White Blood Cell 14.9 10^3/uL (4.4-10.8)
[2023-10-20 05:03] LABS: Alanine Aminotransferase 573 U/L (7-40); Albumin 3.7 g/dL (3.2-4.8); Alkaline Phosphatase 198 U/L (46-116); Anion Gap 17 (5-15); Aspartate Aminotransferase 483 U/L (13-40); BUN/Creatinine Ratio 14.9 (10.0-20.0); Bilirubin, Total 2.2 mg/dL (0.2-1.0); Blood Urea Nitrogen 43 mg/dL (9-23); Calcium 9.7 mg/dL (8.7-10.4); Carbon Dioxide 12 mmol/L (20-30); Chloride 102 mmol/L (98-107); Glucose 148 mg/dL (74-106); Potassium 4.6 mmol/L (3.5-5.1); Sodium 131 mmol/L (136-145); Total Protein 6.3 g/dL (5.7-8.2)
[2023-10-20] MEDS: AMIODARONE 450mg/250ml AE 250 ML IV SCH ×2 (06:00→16:31)
[2023-10-20] MEDS: SODIUM CHLOR 0.9% PF (SALINE LOCK) 10ML VIAL/SYR IV SCH (06:02)
[2023-10-20 09:17] LABS: Magnesium 2.1 mg/dL (1.6-2.6)
[2023-10-20 09:18] LABS: Phosphorus 6.8 mg/dL (2.4-5.1)
[2023-10-20] MEDS ORDERED: CARVEDILOL 3.125 MG TAB PO SCH (10:00)
[2023-10-20] MEDS ORDERED: FUROSEMIDE 20 MG/2 ML VIAL IV SCH ×2 (10:00→14:00)
[2023-10-20] MEDS ORDERED: ENOXAPARIN SOD 100 MG/1 ML SYRINGE SC SCH (10:00)
[2023-10-20] MEDS ORDERED: APIXABAN 5 MG TAB PO SCH (10:00)
[2023-10-20] MEDS ORDERED: FUROSEMIDE INJECTION 100 MG in D5W 5% 100 ML IV SCH (10:00)
[2023-10-20 10:26] LABS: INR 2.7 (0.9-1.15); Partial Thromboplastin Time 41.9 SEC (24.5-34.5); Prothrombin Time 26.6 sec (9.3-11.8)
[2023-10-20 10:38] LABS: Urine Bacteria FEW /hpf (None Seen); Urine Blood TRACE /uL (Negative); Urine Clarity Hazy (Clear); Urine Color Yellow (Yellow); Urine Hyaline Cast MANY /lpf (0 - 2); Urine Mucus FEW (None Seen); Urine Protein, UAD 1+ (Negative); Urine Specific Gravity 1.016 (1.001-1.035); Urine Urobilinogen 2 mg/dL (Negative); Urine WBC 25 /hpf (0 - 3); Urine pH 5.5 (5.0-9.0)
[2023-10-20 10:45] LABS: Amphetamine Screen, Urine Neg (NEGATIVE); Barbiturate Scree,Urine Neg (NEGATIVE); Benzodiazephine Screen, Urine Neg (NEGATIVE); Cannabinoid Screen, Urine Neg (NEGATIVE); Cocaine Screen, Urine Neg (NEGATIVE); Opiate Scree,Urine Neg (NEGATIVE); Phencyclidine Screen, Urine Neg (NEGATIVE)
[2023-10-20] MEDS: AZITHROMYCIN 500MG/ 250ML 250 ML IV ONE (12:40)
[2023-10-20] MEDS: FUROSEMIDE INJECTION 100 MG in SODIUM CHL 0.9% 100 ML IV SCH (12:40)
[2023-10-20] MEDS: ROCURONIUM 10MG/ML 10ML VIAL IV ONE ×3 (13:54→14:06)
[2023-10-20] MEDS: ETOMIDATE (2MG/ML) 20ML VIAL IV ONE ×2 (13:54→14:00)
[2023-10-20] MEDS: PROPOFOL 100 ML IV ONE (13:55)
[2023-10-20] MEDS: fentaNYL Drip 2500mCg/250mlNS 250 ML IV ONE (13:55)
[2023-10-20] MEDS: MIDAZOLAM DRIP 50 mg/50mL 50 ML IV SCH (14:15)
[2023-10-20] MEDS: PROPOFOL 100 ML IV SCH (14:15)
[2023-10-20] MEDS: VASOPRESSIN 20 UNITS in SODIUM CHL 0.9% 99 ML IV SCH (14:15)
[2023-10-20] MEDS: DOPamine 1600MCG/ML D5W 250 ML IV SCH (14:15)
[2023-10-20] MEDS: DOPamine 1600MCG/ML D5W 250 ML IV ONE (14:17)
[2023-10-20] MEDS: MAGNESIUM SULFATE 1GM/100ML 100 ML IV ONE ×2 (14:45→14:46)
[2023-10-20] MEDS: PHENYLEPHRINE IV 250 ML IV ONE (14:46)
[2023-10-20] MEDS: POTASSIUM CHL 20MEQ/100ML 100 ML IV ONE ×2 (14:46→16:28)
[2023-10-20] MEDS: PHENYLEPHRINE IV 250 ML IV SCH (15:00)
[2023-10-20] MEDS: EPINEPHrine HCL 250 ML IV ONE (15:38)
[2023-10-20] MEDS: SODIUM BICARB 8.4% 50Meq/50ml SYR Vial IV ONE ×2 (15:47→16:30)
[2023-10-20 15:51] LABS: Base Excess -20.1 mmol/L (-2.0-2.0)
[2023-10-20] MEDS: fentaNYL Drip 2500mCg/250mlNS 250 ML IV SCH (16:27)
[2023-10-20] MEDS: EPINEPHrine HCL 250 ML IV SCH (16:31)
[2023-10-20 18:56] LABS: Free T4 (Free Thyroxine) 1.19 ng/dL (0.89-1.76); T3 Total 0.54 ng/mL (0.60-1.81)
[2023-10-20] MEDS ORDERED: MORPHINE SULFATE INJ 2 MG/ml SYRG IV PRN ×2 (20:00)
[2023-10-20] MEDS ORDERED: LORazepam 2MG/ML-1ML VIAL IV PRN (20:00)
[2023-10-20] MEDS ORDERED: LORazepam 2MG/ML-1ML VIAL ONE (20:06)
[2023-10-20] MEDS ORDERED: ATORVASTATIN 20 MG TAB PO SCH (22:00)
[2023-10-21] MEDS ORDERED: AZITHROMYCIN 500MG/ 250ML 250 ML IV SCH (10:00)
[2023-10-23 08:41] LABS: Hepatitis B Surface Antigen Negative (Negative)
[2023-10-23 09:02] LABS: Hepatitis A Ab IgM Negative
[2023-10-23 09:03] LABS: Hepatitis B Core IgM Negative; Hepatitis C Antibody Negative (Negative)
== END 2023-10-20 21:36 | DRG 208 ==
LOC: ER 20:53 → UNDOADMIN 23:52 → TELE 23:52 → ICU WEST 10-20 08:39
PROVIDERS: ADMIT Nurse Practitioner Family; ATTEND Nurse Practitioner Family
PROC: 02HV33Z Insertion of Infusion Device into Superior Vena Cava, Percutaneous Approach (ICD-10-PCS; principal; 2023-10-20)
PROC: 5A1935Z Respiratory Ventilation, Less than 24 Consecutive Hours (ICD-10-PCS; 2023-10-20)
PROC: B548ZZA Ultrasonography of Superior Vena Cava, Guidance (ICD-10-PCS; 2023-10-20)
PROC: 4A133B1 Monitoring of Arterial Pressure, Peripheral, Percutaneous Approach (ICD-10-PCS; 2023-10-20)
PROC: 30233K1 Transfusion of Nonautologous Frozen Plasma into Peripheral Vein, Percutaneous Approach (ICD-10-PCS; 2023-10-20)
PROC: 5A09357 Assistance with Respiratory Ventilation, Less than 24 Consecutive Hours, Continuous Positive Airway Pressure (ICD-10-PCS; 2023-10-20)
PROC: 0BH17EZ Insertion of Endotracheal Airway into Trachea, Via Natural or Artificial Opening (ICD-10-PCS; 2023-10-20)
DX: J96.01 Acute respiratory failure with hypoxia (principal); I50.23 Acute on chronic systolic (congestive) heart failure; I21.A1 Myocardial infarction type 2; J18.9 Pneumonia, unspecified organism; N17.0 Acute kidney failure with tubular necrosis; K83.1 Obstruction of bile duct; K72.00 Acute and subacute hepatic failure without coma; I13.0 Hypertensive heart and chronic kidney disease with heart failure and stage 1 through stage 4 chronic kidney disease, or unspecified chronic kidney disease; E87.1 Hypo-osmolality and hyponatremia; E87.20 Acidosis, unspecified; D68.69 Other thrombophilia; I48.0 Paroxysmal atrial fibrillation; F17.210 Nicotine dependence, cigarettes, uncomplicated; E78.5 Hyperlipidemia, unspecified; R57.0 Cardiogenic shock; Z66 Do not resuscitate; J45.909 Unspecified asthma, uncomplicated; K76.1 Chronic passive congestion of liver; R56.9 Unspecified convulsions; I46.9 Cardiac arrest, cause unspecified; N40.0 Benign prostatic hyperplasia without lower urinary tract symptoms; N18.32 Chronic kidney disease, stage 3b; I25.10 Atherosclerotic heart disease of native coronary artery without angina pectoris; I25.5 Ischemic cardiomyopathy; Z79.01 Long term (current) use of anticoagulants; Z79.899 Other long term (current) drug therapy; Z98.61 Coronary angioplasty status; I25.2 Old myocardial infarction
CPT/HCPCS: 36415; 36600; 71045; 76604; 80053; 80061; 80074; 80307; 81001; 82140; 82306; 82607; 82805; 83605; 83615; 83690; 83735; 83880; 84100; 84439; 84443; 84480; 84484; 85025; 85610; 85730; 86850; 86900; 86901; 87070; 87081; 87086; 87205; 93005; 93306; 94002; 94660; 99291; G0378; J0171; J2405; J2704; J3480; J7060